=== PATIENT | male | born 1945 | race African-American/Black ===

== ENCOUNTER 2018-04-10 11:22 | Emergency (ER) | payer OTHER ==
[2018-04-10 11:38] VITALS: TEMP 97.9; BMI 24.2
[2018-04-10] MEDS ORDERED: SODIUM CHLORIDE 1,000 ML IV STA (12:04)
--- NOTE | 2018-04-10 12:05 | PDOC ---
History of Present Illness - General History Source: Patient Exam Limitations: No Limitations - History of Present Illness Initial Comments: 04/10/18 15:04 The patient is a 72 year old male, with a significant PMH of diabetes, HTN and HDL, who presents to the emergency department for evaluation of a high blood glucose level this morning. The patient states he had a bagel today at 8:00 am and noticed his body start to progressively shake while driving this morning accompanied with mild dizziness. The patient reports his took him to [facility] where blood test results showed elevated blood sugar level in the 400s. The patient denies chest pain, shortness of breath, headache. Denies fever, chills, nausea, vomit, diarrhea and constipation. Denies dysuria, frequency, urgency and hematuria. Allergies: NKDA Past surgical history: None reported Social history: None reported PCP: Mati Shields <Yi Montelongo - Last Filed: 04/10/18 15:04> - General History Source: Patient Exam Limitations: No Limitations <Aparna Saucedo - Last Filed: 04/10/18 17:32> - General Chief Complaint: Blood Sugar Problem Stated Complaint: SENT BY PCP Time Seen by Provider: 04/10/18 12:03 Past History <Yi Montelongo - Last Filed: 04/10/18 15:04> - Past Medical History COPD: No Diabetes: Yes - Suicide/Smoking/Psychosocial Hx Smoking History: Never smoked <Aparna Saucedo - Last Filed: 04/10/18 17:32> - Past Medical History Allergies/Adverse Reactions: Allergies Allergy/AdvReac Type Severity Reaction Status Date / Time No Known Allergies Allergy Verified 04/10/18 11:36 Home Medications: Ambulatory Orders Atorvastatin Ca [Lipitor] 10 mg PO HS 04/10/18 Azelastine HCl 137 mcg NS DAILY 04/10/18 Finasteride 5 mg PO DAILY 04/10/18 Glimepiride 2 mg PO DAILY 04/10/18 Lisinopril 5 mg PO DAILY 04/10/18 Montelukast Na [Singulair -] 10 mg PO HS 04/10/18 Sitagliptin Phos/Metformin HCl [Janumet 50-1,000 mg Tablet] 1 each PO DAILY 09/22 Tamsulosin HCl [Flomax] 0.4 mg PO DAILY 04/10/18 Review of Systems - Review of Systems Able to Perform ROS?: Yes Comments:: 04/10/18 15:04 Constitutional: no fevers or chills. HEENT: no headache. No congestion. No visual/hearing disturbances. +dizziness CVS: no cp or syncope. Resp: no sob. No cough. Abdomen: no abdominal pain, nausea or vomiting. Genitourinary: no urinary sx, hematuria. MUSCULOSKELETAL: No joint pain and swelling. No neck or back pain. SKIN: no redness or skin changes, no discharge, no rash. No wounds. Hematologic: no easy bruising/bleeding. NEUROLOGIC: +Dizziness. +shakes. No headache. LOC or altered mental status. No weakness, numbness or tingling. Endocrine: hyperglycemia All other systems reviewed and negative, or as documented in HP <Yi Montelongo - Last Filed: 04/10/18 15:04> *Physical Exam - Vital Signs Last Vital Signs Temp Pulse Resp BP Pulse Ox 97.9 F 93 H 18 120/79 100 04/10/18 11:32 04/10/18 11:32 04/10/18 11:32 04/10/18 11:32 04/10/18 11:32 - Physical Exam Comments: 04/10/18 15:04 General:Well appearing, awake and alert, NAD. HEENT: NCAT, PERRL, EOMI, clear conjunctiva, anicteric, moist mucous membranes, clear oropharynx, no oral lesions. Neck: neck supple, FROM Resp: CTAB, normal and even respirations, no respiratory distress CVS: RRR, no murmurs, 2+ peripheral pulses throughout, no peripheral edema Abdomen: soft, NTND, no peritoneal signs. Back:nontender, normal inspection and ROM MSK: no edema, LOZOYA x4, ROM intact. No clubbing or cyanosis. normal bulk and tone. Extrem: no calf tenderness Neuro: alert, oriented appropriately; no focal neurologic deficits Skin: warm and well perfused, cap refill <2 sec, normal color <Yi Montelongo - Last Filed: 04/10/18 15:04> - Vital Signs Last Vital Signs Temp Pulse Resp BP Pulse Ox 97.9 F 93 H 18 120/79 100 04/10/18 11:32 04/10/18 11:32 04/10/18 11:32 04/10/18 11:32 04/10/18 11:32 <Aparna Saucedo - Last Filed: 04/10/18 17:32> Heart Score/ECG Review - ECG Impressions Normal ECG: Yes Comment:: 04/10/18 17:27 sinus arrhythmia, sinus rhythm at 82 bpm, narrow QRS and normal intervals, nonspecific TWF and abnormalities in inferior leads only <Aparna Saucedo - Last Filed: 04/10/18 17:32> ED Treatment Course - LABORATORY CBC & Chemistry Diagram: 04/10/18 12:15 04/10/18 12:15 - ADDITIONAL ORDERS Additional order review: Laboratory Results 04/10/18 04/10/18 13:10 12:15 Sodium 137 Potassium 4.4 Chloride 99 Carbon Dioxide 28 Anion Gap 9 BUN 10 Creatinine 1.5 H Creat Clearance w eGFR 46.27 Random Glucose 394 H* Calcium 8.4 L Total Bilirubin 0.4 AST 13 L ALT 18 Alkaline Phosphatase 57 Total Protein 6.5 Albumin 3.4 Urine Color Straw Urine Appearance Clear Urine pH 5.0 Ur Specific Chadron 1.031 Urine Protein Negative Urine Glucose (UA) 3+ H Urine Ketones Negative Urine Blood Negative Urine Nitrite Negative Urine Bilirubin Negative Urine Urobilinogen Negative Ur Leukocyte Esterase Negative 04/10/18 12:15 RBC 4.22 MCV 91.4 MCHC 35.1 RDW 13.1 MPV 8.6 Neutrophils % 72.7 Lymphocytes % 19.1 Monocytes % 7.1 Eosinophils % 0.2 Basophils % 0.9 - Medications Given in the ED: ED Medications Discontinued Medications Generic Name Dose Route Start Last Admin Trade Name Freq PRN Reason Stop Dose Admin Sodium Chloride 1,000 mls @ 1,000 mls/hr 04/10/18 12:04 04/10/18 12:28 Normal Saline - IV 04/10/18 13:03 1,000 mls/hr .Q1H STA Administration Insulin Human Regular 10 units 04/10/18 13:44 04/10/18 14:42 Novolin R Vial *For Ivpush Or Iv Drip Only* SQ 04/10/18 13:45 10 unit ONCE ONE Administration Sodium Chloride 1,000 ml 04/10/18 13:18 04/10/18 14:41 Normal Saline - IV 04/10/18 13:19 1,000 ml ONCE ONE Administration <Yi Montelongo - Last Filed: 04/10/18 15:04> - LABORATORY CBC & Chemistry Diagram: 04/10/18 12:15 04/10/18 12:15 <Aparna Saucedo - Last Filed: 04/10/18 17:32> Medical Decision Making - Medical Decision Making 04/10/18 15:09 72 YOM with DM2, HTN, HLD presenting with hyperglycemia. no other sx and well appearing. vitals wnl, no fever, normotensive. labs and lytes wnl. however, glucose elevated 390s, Cr at baseline 1.5 (compared to prior results from Outpatient at ~1.2) given IVF and insulin SQ, downtrended on repeat POCT 95 on recheck glucose in the urine as expected, but does not appear ill or severely dehydrated. tolerating PO. normal mental status and well appearing, no neuro deficits. given glucerna. EKG sinus rhythm, PACs no ischemic findings doubt DKA, as clear precipitant of high carb intake/bagels avoid further high carb intake as that metabolizes to sugar and precipitates hyperglycemia f/u PCP as outpatient, return precautions discussed I discussed the physical exam findings, ancillary test results and final diagnoses with the patient. I answered all of the patient's questions. The patient was satisfied with the care received and felt comfortable with the discharge plan and treatment plan. The patient will return to the Emergency Department with any new, persistent or worsening symptoms. 04/10/18 17:31 <Aparna Saucedo - Last Filed: 04/10/18 17:32> *DC/Admit/Observation/Transfer - Attestations Scribe Attestion: 04/10/18 15:05 Documentation prepared by Yi Montelongo, acting as center medical director for Aparna Saucedo MD. <Yi Montelongo - Last Filed: 04/10/18 15:04> - Discharge Dispostion Decision to Admit order: No - Attestations Physician Attestion: 04/10/18 13:45 I, Aparna Saucedo MD, attest that this document has been prepared under my direction and personally reviewed by me in its entirety. I further attest, that it accurately reflects all work, treatment, procedures and medical decision -making performed by me. <Aparna Saucedo - Last Filed: 04/10/18 17:32> Diagnosis at time of Disposition: Hyperglycemia - Discharge Dispostion Disposition: HOME Condition at time of disposition: Improved - Referrals Referrals: Mati Cantu MD [Primary Care Provider] - - Patient Instructions Printed Discharge Instructions: DI for Hyperglycemia -- Adult Additional Instructions: blood Work here was within normal limits. Your sugar has down trended with appropriate therapy, follow-up with her primary doctor for the management of your diabetes. Avoid high carbohydrate and sugary foods as that may precipitate your blood sugar and derangements. All hydrated. Be sure to check her blood sugar with her meals and avoid potential precipitants. - Post Discharge Activity
[2018-04-10 12:31] LABS: BASO % 0.9 % (0-2.0); EOS % 0.2 % (0-4.5); HEMATOCRIT 38.6 % (35.4-49); HEMOGLOBIN 13.5 GM/dL (11.7-16.9); LYMPH % 19.1 % (8-40); MCHC 35.1 g/dl (32.0-35.9); MEAN CELL VOLUME 91.4 fl (80-96); MEAN PLT VOLUME 8.6 fl (7.5-11.1); MONO % 7.1 % (3.8-10.2); NEUT % 72.7 % (42.8-82.8); PLATELET COUNT 256 K/MM3 (134-434); RBC 4.22 M/mm3 (4.00-5.60); RDW 13.1 % (11.9-15.9)
[2018-04-10 13:00] LABS: ALBUMIN 3.4 g/dl (3.4-5.0); ALK PHOS 57 U/L (45-117); ANION GAP 9 MMOL/L (8-16); BILIRUBIN,TOTAL 0.4 mg/dL (0.2-1); BLOOD UREA NITROGEN 10 mg/dL (7-18); CALCIUM 8.4 mg/dL (8.5-10.1); CHLORIDE 99 mmol/L (98-107); CO2 28 mmol/L (21-32); CREATININE 1.5 mg/dL (0.55-1.3); POTASSIUM 4.4 mmol/L (3.5-5.1); SGOT/AST 13 U/L (15-37); SGPT/ALT 18 U/L (13-61); SODIUM 137 mmol/L (136-145); TOT PROT 6.5 g/dl (6.4-8.2)
[2018-04-10] MEDS ORDERED: SODIUM CHLORIDE 0.9% 500 ML INFUS.BAG IV ONE (13:18)
[2018-04-10 13:25] LABS: URINE APPEARANCE CLEAR; URINE BILIRUBIN NEGATIVE (<2.0 mg/dL); URINE COLOR STRAW; URINE GLUCOSE (UA) 3+ (NEGATIVE); URINE KETONE NEGATIVE (NEGATIVE); URINE LEUK ESTERASE NEGATIVE (NEGATIVE); URINE NITRITE NEGATIVE (NEGATIVE); URINE PROTEIN NEGATIVE (NEGATIVE); URINE UROBILINOGEN NEGATIVE mg/dL (0.2-1.0)
[2018-04-10 13:36] LABS: GLUCOSE,RANDOM 394 mg/dL (74-106)
[2018-04-10] MEDS ORDERED: INSULIN REGULAR HUMAN 100 UNITS/ML *VIAL SQ ONE (13:44)
[2018-04-10] MEDS ORDERED: INSULIN (NOVOLOG) ASPART 100 UNITS/ML 10ML VIAL ONE (14:39)
[2018-04-10 17:56] VITALS: BP 130/68; PULSE 77
--- NOTE | 2018-04-11 10:35 | EKG ---
Test Reason : Blood Pressure : / mmHG Vent. Rate : 082 BPM Atrial Rate : 082 BPM P-R Int : 164 ms QRS Dur : 070 ms QT Int : 364 ms P-R-T Axes : 065 011 011 degrees QTc Int : 425 ms SINUS RHYTHM WITH OCCASIONAL PREMATURE VENTRICULAR COMPLEXES SEPTAL INFARCT , AGE UNDETERMINED ABNORMAL ECG NO PREVIOUS ECGS AVAILABLE Confirmed by GEORGE KRAUSE MD ([id number]) on 04/11/2018 10:35:36 AM Referred By: Confirmed By:GEORGE KRAUSE MD
== END 2018-04-10 17:53 | disposition home or self-care (01) ==
LOC: JER 11:22
PROC: 3E0337Z Introduction of Electrolytic and Water Balance Substance into Peripheral Vein, Percutaneous Approach (ICD-10-PCS; principal; 2018-04-10)
PROC: 3E013VG Introduction of Insulin into Subcutaneous Tissue, Percutaneous Approach (ICD-10-PCS; 2018-04-10)
DX: E11.65 Type 2 diabetes mellitus with hyperglycemia (principal); Z79.84 Long term (current) use of oral hypoglycemic drugs; I10 Essential (primary) hypertension; E78.5 Hyperlipidemia, unspecified; E78.00 Pure hypercholesterolemia, unspecified
CPT/HCPCS: 36415; 80053; 81003; 82962; 85025; 87086; 93005; 93010; 96360; 96372; 99283-25; J7030

== ENCOUNTER 2020-03-12 04:22 | Day surgery (SDC) | payer OTHER ==
[2020-03-11 13:49] VITALS: BMI 30.9
--- OUTSIDE RECORDS SUMMARY | 2020-03-12 04:27 | XMS ---
:1945 Author Organization [facility] Care Team Providers Name Role Tester Equipment/PCP, Patient- no Unavailable Unavailable Celso, CHILD PROTECTION SPECIALIST Unavailable Unavailable Celso, CHILD PROTECTION SPECIALIST Unavailable Unavailable Celso, CHILD PROTECTION SPECIALIST Unavailable Unavailable Celso, CHILD PROTECTION SPECIALIST Unavailable Unavailable Celso, CHILD PROTECTION SPECIALIST Unavailable Unavailable Celso, CHILD PROTECTION SPECIALIST Unavailable Unavailable Celso, CHILD PROTECTION SPECIALIST Unavailable Unavailable Celso, CHILD PROTECTION SPECIALIST Unavailable Unavailable Celso, CHILD PROTECTION SPECIALIST Unavailable Unavailable Celso, CHILD PROTECTION SPECIALIST Unavailable Unavailable Celso, CHILD PROTECTION SPECIALIST Unavailable Unavailable Celso, CHILD PROTECTION SPECIALIST Unavailable Unavailable Celso, CHILD PROTECTION SPECIALIST Unavailable Unavailable Celso, CHILD PROTECTION SPECIALIST Unavailable Unavailable Celso, CHILD PROTECTION SPECIALIST Unavailable Unavailable Celso, CHILD PROTECTION SPECIALIST Unavailable Unavailable [facility] Unavailable Unavailable ABUBAKER Unavailable Unavailable ABUBAKER Unavailable Unavailable ABUBAKER Unavailable Unavailable ABUBAKER Unavailable Unavailable ABUBAKER Unavailable Unavailable ABUBAKER Unavailable Unavailable ABUBAKER Unavailable Unavailable ABUBAKER Unavailable Unavailable MD SASKIA Unavailable Unavailable MD SASKIA Unavailable Unavailable MD SASKIA Unavailable Unavailable MD SASKIA Unavailable Unavailable MD SASKIA Unavailable Unavailable MD SASKIA Unavailable Unavailable Rey BOLANOS MD Unavailable Unavailable Weerackody Unavailable Unavailable DOCTOR Unavailable Unavailable Re-disclosure Warning The records that you are about to access may contain information from federally- assisted alcohol or drug abuse programs. If such information is present, then the following federally mandated warning applies: This information has been disclosed to you from records protected by federal confidentiality rules (42 CFR part 2). The federal rules prohibit you from making any further disclosure of this information unless further disclosure is expressly permitted by the written consent of the person to whom it pertains or as otherwise permitted by 42 CFR part 2. A general authorization for the release of medical or other information is NOT sufficient for this purpose. The Federal rules restrict any use of the information to criminally investigate or prosecute any alcohol or drug abuse patient.The records that you are about to access may contain highly sensitive health information, the redisclosure of which is protected by Article 27-F of the [facility] Public Health law. If you continue you may haveaccess to information: Regarding HIV / AIDS; Provided by facilities licensed or operated by the [facility] Office of Mental Health; or Provided by the [facility] Office for People With Developmental Disabilities. If such information is present, then the following [facility] mandated warning applies: This information has been disclosed to you from confidential records which are protected by state law. State law prohibits you from making any further disclosure of this information without the specific written consent of the person to whom it pertains, or as otherwise permitted by law. Any unauthorized further disclosure in violation of state law may result in a fine or penitentiary sentence or both. A general authorization for the release of medical or other information is NOT sufficient authorization for further disclosure. Allergies and Adverse Reactions Type Description Substance Reaction Status Data Source(s ) No information No information No information No information Centricity available. available. available. available. No ([facility] available. Healthcare) No information available. Drug Class NO KNOWN ALLERGIES NO KNOWN ALLERGIES [facility] Drug allergy No Known Allergies No Known Allergies [facility] Encounters Encounter Providers Location Date Indications Data Source(s ) [facility] 08:10:22 PM ([facility]) Outpatient 11/17/2019 [facility]EXTGEN ([place] 09:36:00 AM Healthcare) EDT Outpatient 11/16/2019 [facility]EXTGEN ([place] 11:34:00 AM Healthcare) EDT Outpatient Attender: YOANNA RAHMAN2 11/01/2019 [facility] 04:17:01 PM ([facility]) [facility]: [facility] 04:08:01 PM ([facility] EDT Healthcare) [facility]: [facility] [place] [address] 10/25/2019 [facility] 01:45:01 PM ([facility] EDT Healthcare) Outpatient [facility]: [facility] [address] 10/24/2019 [facility] 04:23:00 PM ([facility] EDT Healthcare) Outpatient [facility]: [facility] [address] 10/24/2019 [facility] 04:22:01 PM ([facility] EDT Healthcare) Outpatient [facility] [place] [address] 10/24/2019 [facility] 04:20:01 PM ([facility] EDT Healthcare) Collision Technician: Carole 10/24/2019 [facility] jodie Fishgo TONY 10:35:47 AM ([facility] EDT - Healthcare) 10/24/2019 10:35:47 AM EDT [facility] 10/24/2019 [facility] 10:01:01 AM ([facility] EDT Healthcare) Outpatient Attender: [facility] 10/20/2019 [facility] 09:01:39 PM ([facility] EDT Healthcare) Outpatient Attender: [facility] 10/20/2019 [facility] 04:06:00 PM ([facility] EDT Healthcare) Outpatient Attender: [facility] 10/20/2019 [facility] 04:03:00 PM ([facility] EDT Healthcare) Outpatient 07/30/2019 [facility]EXTGEN ([place] 07:25:00 AM Healthcare) EST Outpatient 07/29/2019 NEXTGEN ([place] 08:37:00 AM Healthcare) EST Inpatient Attender: ASHLEY 07/23/[address] Leticia KRUGER MDAdmitter: 09:24:00 AM [facility] ASHLEY KRUGER EST - MDReferrer: NO 07/24/2019 DOCTORConsultant: 04:34:00 PM Patient- EST Specialist/PCP SYNCOPE Patient discharged. Emergency Attender: ITZ 07/23/2019 06:05:00 DIABETIC S t Leticia Shafer ABUBAKERAttender: MATTHEW AM EST Ho sury BOLANOS MDReferrer: SANDIP [place] DOCTORConsultant: Patient- Specialist/PCP DIABETIC P Attender: ITZ TAYLOR 07/23/2019 05:57:00 AM DIABETIC [facility] DIABETIC P Attender: ITZ TAYLOR 07/23/2019 05:57:00 AM DIABETIC [facility] DIABETIC P Attender: ITZ TAYLOR 07/23/2019 05:43:00 AM DIABETIC [facility] DIABETIC P Attender: ITZ TAYLOR 07/23/2019 05:42:00 AM DIABETIC [facility] DIABETIC P Attender: ITZ TAYLOR 07/23/2019 05:42:00 AM DIABETIC [facility] DIABETIC P Attender: ITZ TAYLOR 07/23/2019 05:42:00 AM DIABETIC [facility] DIABETIC P Attender: ITZ TAYLOR 07/23/2019 05:42:00 AM DIABETIC [facility] DIABETIC P Attender: ITZ TAYLOR 07/23/2019 05:42:00 AM DIABETIC [facility] DIABETIC P Attender: ITZ TAYLOR 07/23/2019 05:42:00 AM DIABETIC [facility] DIABETIC P Attender: ITZ TAYLOR 07/23/2019 05:42:00 AM DIABETIC [facility] DIABETIC P Attender: ITZ TAYLOR 07/23/2019 05:42:00 AM DIABETIC [facility] DIABETIC P Attender: ITZ TAYLOR 07/23/2019 05:42:00 AM DIABETIC [facility] DIABETIC P Attender: ITZ TAYLOR 07/23/2019 05:42:00 AM DIABETIC [facility] DIABETIC P Attender: ITZ TAYLOR 07/23/2019 05:42:00 AM DIABETIC [facility] DIABETIC P Attender: ITZ TAYLOR 07/23/2019 05:41:00 AM DIABETIC [facility] DIABETIC P Attender: ITZ TAYLOR 07/23/2019 05:35:00 AM DIABETIC [facility] DIABETIC P 07/23/2019 05:31:00 AM EST DIABETIC [facility] DIABETIC P 07/23/2019 05:31:00 AM EST DIABETIC [facility] DIABETIC P 07/23/2019 05:30:00 AM EST DIABETIC [facility] DIABETIC P 07/23/2019 05:29:00 AM EST DIABETIC [facility] DIABETIC P 07/23/2019 05:29:00 AM EST DIABETIC [facility] DIABETIC P 07/23/2019 05:15:00 AM EST DIABETIC [facility] DIABETIC P Attender: ITZ TAYLOR 07/23/2019 05:14:00 AM DIABETIC [facility] DIABETIC Outpatient Attender: Jarad 07/23/2019 12:00:00 AM [facility] - 07/23/2019 Heart Ce nter 11:59:00 PM EST Outpatient 04/20/2019 07:31:00 AM NE XTGEN ([employer] [facility]) Outpatient 04/19/2019 10:24:00 PM NE XTGEN ([employer] [facility]) 04/17/2018 01:37:25 PM [facility] Medications Medication Brand Start Product Dose Route Administrative Pharmacy [facility] Indications Reaction Description Data Name Date Form Instructions Instructions Source(s) Azithromyci Azithr 04/02/ TABLET 250 complet [facility] [facility] n 250 MG omycin 2014 ed [place] Oral Tablet (Zithr 12:00: Hosp ital - [Zithromax] omax) 00 AM [facility] gh Azithromyci 250 Mg EDT n Tablet (Zithromax) Tablet 250 Mg , 250 Tablet Mg Tablet, 250 Oral Mg Oral Donepezil DONEPE TABLET 1 complet EVERY DA Y [facility] hydrochlori ZIL ed [place] de 5 MG [facility] - Oral Tablet (ARICE [place] [Aricept] PT) 5 DONEPEZIL MG HCL TABLET (ARICEPT) 5 MG TABLET Finasteride FINAST TABLET [address] [facility] 5 MG Oral ERIDE ed [place] Tablet ([facility] - [Proscar] AR) 5 [place] FINASTERIDE MG (PROSCAR) 5 TABLET MG TABLET Sertraline SERTRA TABLET 50 complet EVERY D [facility] 25 MG Oral LINE ed [place] Tablet HCL Hospital - [Zoloft] (ZOLOF [place] SERTRALINE T) 25 HCL MG (ZOLOFT) 25 TABLET MG TABLET sitagliptin Sitagl TABLET [address] [facility] 25 MG Oral iptin ed [place] Tablet Phosph Hospital - [Januvia] ate [place] Sitagliptin (Januv Phosphate ia) 25 (Januvia) Mg 25 Mg Tablet Tablet Tablet Tablet, 25 , 25 Mg Oral Mg Oral Tamsulosin Tamsul CAPSULE, 1 complet AT BE DTIME [facility] hydrochlori osin EXTENDED ed DAILY Cor nwall de 0.4 MG HCl RELEASE Hospita l - Oral (Floma [place] Capsule x) 0.4 [Flomax] MG Tamsulosin CAP.ER HCl .24H (Flomax) 0.4 MG CAP.ER.24H Metformin Sitagl TABLET 1 complet EVERY DA Y [facility] hydrochlori iptin ed [place] de 1000 MG Phos/M Hospita l - / etform [place] sitagliptin in HCl 50 MG Oral (Janum Tablet et [Janumet] 50-1,0 Sitagliptin 00 MG Phos/Metfor Tablet min HCl ) 1 (Janumet EACH 50-1,000 MG TABLET Tablet) 1 EACH TABLET Divalproex DIVALP 125 complet TWICE A D [facility] Sodium 125 ROEX ed [place] MG Delayed SODIUM Hospita l - Release (DEPAK [place] Oral OTE Capsule SPRINK [Depakote] LE) DIVALPROEX 125 MG SODIUM CAP.SP (DEPAKOTE RINK SPRINKLE) 125 MG CAP.SPRINK glimepiride Glimep TABLET [address] [facility] 1 MG Oral iride ed [place] Tablet ([facility] - [Amaryl] l) 1 [place] Glimepiride Mg (Amaryl) 1 Tablet Mg Tablet Tablet Tablet, 1 , 1 Mg Mg Oral Oral Insulin Insuli 5 complet AT BEDTIME [facility] Glargine n ed DAILY [place] 100 UNT/ML Glargi Hospita l - Injectable ne,[facility] h Solution .rec.a [Lantus] nlog Insulin (Lantu Glargine,Hu s) 100 m.rec.anlog UNIT/1 (Lantus) ML 100 UNIT/1 VIAL ML VIAL No complet No Centricity information ed information ( [facility] available. available. [facility] ) atorvastati Atorva TABLET [address] [facility] n 10 MG statin ed [place] Oral Tablet [facility] - [Lipitor] m [place] Atorvastati (Lipit n Calcium or) 10 (Lipitor) Mg 10 Mg Tablet Tablet Tablet Tablet, 10 , 10 Mg Oral Mg Oral Glyburide 5 Glybur TABLET [address] [facility] MG Oral milton ed [place] Tablet ([facility] [[facility]] ) 5 [place] Glyburide Mg ([facility]) 5 Tablet Mg Tablet Tablet Tablet, 5 , 5 Mg Mg Oral Oral Lisinopril LISINO TABLET 2.5 complet EVERY D [facility] 2.5 MG Oral PRIL ed [place] Tablet ([facility] - [[facility]] MS) [place] LISINOPRIL 2.5 MG ([facility]) TABLET 2.5 MG TABLET Insurance Providers Payer name Policy type Policy ID Covered Covered republican's Policy P aminata / Coverage republican ID relationship to [place] [employer] ormation type [place] AETNA MEDICARE [id number] SP [id number] COMM [id number] Self [id number] AETNA [facility] [id number] SP [id number] [place] MEDICARE AETNA OPEN [id number] SPSE [id number] [id number] SP [id number] [facility] AETNA USHC [id number] SP [id number] [place] MEDICARE UNITED [id number] [facility] [id number] HEALTHCARE [facility] [id number] HEALTHCARE (MEDICARE) Problems, Conditions, and Diagnoses Code Display Name Description Problem Type Effective Data Sour ce(s) Dates Z20.828 Exposure to Exposure to Diagnosis 10/24/2019 Centricity COVID-19 COVID-19 12:00:00 AM ([facility] coronavirus coronavirus [facility]) Z01.84 Immunity status Immunity status Diagnosis 10/24/2019 Cent ricity testing, antibody testing, antibody 12:00:00 AM ([facility] response response [facility]) Z81.8 Family history of FAMILY HISTORY OF Diagnosis 07/23/2019 [facility] other mental and OTHER MENTAL AND 09:24:00 AM C adánl behavioral BEHAVIORAL DISO [facility] - disorders [place] Z83.3 Family history of FAMILY HISTORY OF Diagnosis 07/23/2019 [facility] diabetes mellitus DIABETES MELLITUS 09:24:00 AM [facility] Z82.3 Family history of FAMILY HISTORY OF Diagnosis 07/23/2019 [facility] stroke STROKE 09:24:00 AM [facility] Z87.442 Personal history PERSONAL HISTORY Diagnosis 07/23/2019 [facility] of urinary calculi OF URINARY 09:24:00 AM [place] all CALCULI [facility] Z79.[address] Diagnosis 07/23/2019 [facility] (current) use of (CURRENT) USE OF 09:24:00 AM C ornalbertol oral hypoglycemic ORAL HYPOGLYCEMIC [facility] - drugs DRUGS [place] N40.0 Benign prostatic BENIGN PROSTATIC Diagnosis 07/23/2019 [facility] hyperplasia HYPERPLASIA 09:24:00 AM [place] without lower WITHOUT LOWER [facility] - urinary tract URINRY [place] symptoms G25.0 Essential tremor ESSENTIAL TREMOR Diagnosis 07/23/2019 [facility] 09:24:00 AM [facility] F02.80 Dementia in other DEMENTIA IN OTH Diagnosis 07/23/2019 [facility] diseases DISEASES CLASSD 09:24:00 AM [place] classified ELSWHR W/O [facility] - elsewhere without BEHAVRL [facility] h behavioral disturbance D64.9 Anemia, ANEMIA, Diagnosis 07/23/2019 [facility] unspecified UNSPECIFIED 09:24:00 AM [facility] E87.2 Acidosis ACIDOSIS Diagnosis 07/23/2019 [facility] 09:24:00 AM [facility] E11.649 Type 2 diabetes TYPE 2 DIABETES Diagnosis 07/23/2019 [facility] ukes mellitus with MELLITUS WITH 09:24:00 AM [facility] hypoglycemia HYPOGLYCEMIA [facility] - without coma WITHOUT [place] N17.9 Acute kidney ACUTE KIDNEY Diagnosis 07/23/2019 [facility] failure, FAILURE, 09:24:00 AM [place] unspecified UNSPECIFIED [facility] R55 Syncope and SYNCOPE AND Diagnosis 07/23/2019 [facility] collapse COLLAPSE 09:24:00 AM [facility] Results ID Date Data Source [id number] 03/07/2020 11:10:00 AM EDT [facility] Name Value Range Interpretation Description Data Sup porting Code Source(s) Document(s ) SARS [facility] coronavirus 2 RNA This lab was ordered by [facility] and reported by [facility]. ID Date Data Source [id number] 07/31/2019 04:02:00 [facility] SAHIL CANTU STATUS: DIS INoACCOUNT #: [id number] ADM UNIT #: [id number] ROOM/BED: [place] [address]SEX: M ATTEND: GERHARD KRUGER MDOB: [birth year] AGE: 73 AUTHOR: ASHLEY KRUGER MD PCP: DOCTOR,NOT IN DICTIONARY Service Date/Time: 07/24/19 1434 Discha [facility] Summary.Date of Admission: 07/23/19Date of Discharge: 07/24 Disposition: [home]Co urse of Hospitalization: [73-year-old male with a past medical history as noted bel ow including diabetes, dementia, tremors who lives with his presented to [facility] room after he passed out at his home this morning. As per his the patie nt got up to go to the bathroom and he she heard a thud and he was found on the phyllis or. The patient was disoriented afterwards she gave him orange juice but he was allen ble to drink it and he remained is disoriented but she gave him somesugar s olution and he slowly came back to his normal self. Patient has recently started taki ng insulin at bedtime. His fingerstick glucose was high when measuredby EMS. T he denies any recent sickness illness or other new medications. Patient is curre ntly comfortable, denies any headache, shortness of breath, chest pain.] pt was seen by cardio/neuro,w/u was negative,pt remained asymptomatic here,had a detaile d discussion with could micturition syncope vs hypoglycemia,diabetic educati on was provided.should follow up with cardio/neuro as outpt.was also found to ave creatinine elevation which improved with hydration Physical Exam Physical ExamCon stitutional alert, awake, no acute distressEyes Eye Exam bilateral eye anicteric, bilateral eye lids normalEENT Throat/Mouth mucosa pink/moist, orophary nx WNLCardiovascular regular rhythm, rate within normal limits, normal heart sound sRespiratory breath sounds equal bilat, breath sounds clear bilatGI Abdomen so ft, non-tender, bowel sounds WNLMusculoskeletal Extremities no elmer a, non-tender, Right arm resting tremorSkin/Integumentary color normal, d ry, warmNeuro no gross motor deficit, speech normal Problem, Assessment PlanPROBLEM , ASSESSMENT PLAN: 1. Syncope ICD Code R55 - Syncope and collapse Qualifiers Syncope type: unspecified Qualified Code: R55 - Syncope and collapse Assess Plan: On Sun 3:40p Jul 23, 2019 ASHLEY KRUGER wrote73 yo male admitted with: -unwit nessed syncope and fall: Seizure versus vasovagal syncope versus hypoglycemia. Blood sugars were high when they were checked. Patient is currently asymptoma tic, Neurology has been consulted. Admit to telemetry, Cardiology has been consulted . Check orthostatic blood pressure, check carotid Doppler. CT head was negative. Monitor blood sugars closely. -acute renal failure: 1.66 at the time of admission, prior records show creatinine of 1.0, likely from dehydration will start him on gentl e hydration and repeat BMP in a.m.. Monitor intake and output. Avoid nephrotoxin me dications. Check UA -DM:fingersticks ACHS, humalog SS.check hba1c,avoid long acting agents,carb controlled diet. Patient is on metformin at home, and also has acute re nal failure, might explain the lactic acidosis. Lactic acidosis has normalize d on subsequent testing. Will avoid metformin for now -dementia: Stable, is being seen by Neurology, supportive care, frequent reorientation. Continue Aricep t. -essential tremors: Continue Depakote bid. -BPH: Continue Proscar, Flomax. -A nemia: Normocytic, normochromic. There is no evidence of bleeding at this time. W ill continue to monitor. 2. Acute renal failure ICD Code N17.9 - Acute kidney failure, unspecified 3. Diabetes ICD Code E11.9 - Type 2 diabetes mellitus without complications 4. Dementia ICD Code F03.90 - Unspecified dementia without behaviora l disturbance 5. BPH (benign prostatic hyperplasia) ICD Code N40.0 - Benign p rostatic hyperplasia without lower urinary tract symptoms 6. Anemia ICD Code D64 .9 - Anemia, unspecified 7. Lactic acidosis ICD Code E87.2 - Acidosis PROPHYLAXIS M EASURESscdReferralsOrdered ReferralsCardiologyFor Groups:[facility] - [id number] [place], [place] [id number] Ne urologyFor Groups:Tatyana Waterman Md[address] [place] [address] Core Measures Stroke/TIANew Onset STK/TIA? No Billing Inpatient CodesDischarge [phone] at 1233 ASHLEY KRUGER MD Electronically Signed 07/31/19 1233 Providers:ASHLEY KRUGER MD Report E ntered Date/Time: 07/24/19 1434Current Report Status: Signed Report #: [id number] PCP ID: NELLY ATTENDING ID: [id number] AUTHOR ID: DAMARIS Name Value Range Interpretation Code Description Data Iman rce(s) Supporting Document(s ) ID Date Data Source [id number] 07/24/2019 10:57:00 AM EST [facility] DEPART MENT OF DIAGNOSTIC IMAGING Patient Name: SAHIL CANTU : 1945 Patient Addr.: Sol MARIN MR#: [id number] [place] [address] Patient Phone #: Dictate Date: 07/24/19 1055 Ordering M.Benja: ASHLEY KRUGER MD, MD ID: SHSHA Trans Date: Copies to: Yash KRUGER MD; CC ID: ; Patient Loc: RadhaN L.511-01 Report #: [id number] Order Number(s): [id number] Site: [facility] Exam Date/Time: 1- 0 07/24/19 1057 Exam: DOPPLER ECHOCARDIOGRAM DEPARTMENT OF CARDIAC IMAGING PROCEDURE: DOPPLER ECHOCARDIOGRAM COMPARISON: None. INDICATIONS: syncope TECHNIQUE: A 2-D ultrasound, color spectral Doppler and M-mode examin ation of the heart and greatvessels was performed. M-MODE MEASUREMENTS EF: 60 % LVIDd (3.7-5.7): 4.4 cm LVIDs (2.5-3.8): 2.5 cm IVSDd (0.6-1 .1): 1.3 cm LVPWd (06.-1.1): 1.1 cm LA (2-4): 3.5 cm AoR (2-3.7): 3 .4 cm LA/AoR Ratio: 1.0 AoV Cusp Sep: 1.9 cm MV EPSS (0-0.7): 0.2 cm DOPPLER LVOT Pk yoni: 1.00 m/s LVOT Pk grad: 3.98 mm[Hg] LVOT VTI: 0.21 m AoV Pk Yoni: 0.90 m/s AoV Pk Grad: 3.24 mm[Hg] AoV Mn Grad: 1.77 mm[Hg] TOO VTI: 0.17 m MVA (PHT): 5.23 cm2 MV Decel T: 145.04 ms MV E: 0. 75 m/s MV A: 0.47 m/s MV E to A Ratio: 1.59 MV e': 0.13 m/s R VSP: 32 mm[Hg] QUALITY: Technical quality was adequate. AO RTIC ROOT: Normal diameter and appearance. ATRIAL SEPTUM: Intact atrial septum. LEFT ATRIUM: Normal chamber size. RIGHT ATRIUM: Normal chamber size. RIGHT VENTRICLE: Normal chamber size. Normal right ventricular contractility. LEFT VENTRICLE: Normal chamber size. Asymmetric interventricular septal hyper trophy. Normal left ventricular contractility. Normal left ventricular e jection fraction, (>55%). AORTIC VALVE: Normal aortic valve. No visible scleros is. Normal leaflet mobility. No evidence of aortic valve stenosis. Mild aortic regu rgitation. MITRAL VALVE: Normal mobility and thickness. No evidence of mitral valve stenosis. There is no mitral annular calcification. No mitral regur gitation. DIASTOLIC: No diastolic dysfunction. TRICUSPID VALVE: Normal mobility and thickness. Mild tricuspid regurgitation. No evidence of pulmonary hypertension. PULMONIC VALVE: Normal thickness and mobility. Normal with no regurgitation. PERICARDIUM: No evidence of pericardia l effusion. IVC: Within normal limits. PLEURA: No evidence of p leural effusion. CONCLUSION: 1. Normal left ventricu lar systolic function (EF >55%) 2. Mild aortic valve regurgitation Data input by: Mary Randolph on 07/24/2019 at 10:57 AM Approved by: Dawood Dimas on 07/24/2019 at 2:17 PM Signed: 07/24/19 1417 DAWOOD DIMAS MD TRN: TBY Name Value Range Interpretation Code Description Data Iman rce(s) Supporting Document(s ) ID Date Data Source [id number] 07/24/2019 09:07:00 AM [facility] PATIENT: ASHIL CANTU STATUS: ADM INoACCOUNT #: [id number] ADM UNIT #: [id number] ROOM/BE D: [place] [address]SEX: M ATTEND: GERHARD KRUGER MDOB: [birth year] AGE: 73 AUTHOR: TATYANA WATERMAN MD PCP: DOCTOR,NOT IN DICTIONARY Service Date/Time: 07/24/19 0905 Subjec tiveAdmission information Feeling wellAmbulating to the wilkins Physical Exam Vital signsVital Signs Date Time Temp Pulse Resp B/P B/P Pulse O2 O2 Flow FiO2 Mean Ox Delivery Rate 07/24 0600 97.8 66 16 129/90 07/24 0000 98.0 71 16 130/84 07/23 1900 98.6 76 17 117/55 07/23 1500 97.6 71 16 133/79 07/23 1104 97.0 66 16 120/57 07/23 1019 97.0 07/23 0906 66 12 0/57 100 Neurological Examination HEENT: NC/ATMS: Alert, knows he is in ho spital, overall confused with poor short-term memoryCN: II-XII are intactMotor: 5/5, n o drift, no focal weaknessCerebellar: Essential tremor in both upper extremiti es, no dysmetria, not walkedSensory: IntactDTRs: Hypoactive, ankle jerks abs ent, plantar responses are flexor Diagnostic Findings Diagnostic FindingsLaboratoryLa boratory Tests 07/24 07/23 0 07/23 0726 0947 0917 Chemistry Sodium (135 - 145 mmol/L) 143 Potassium (3.5 - 5.1 mmol/L) 3.9 Chloride (98 - 107 mmol/L) 110 H Carbon Dioxide (21 - 32 mmol/L) 27 Anion Gap (8 - 20 mmol/L) 6.0 L BUN (7 - 18 mg/dL) 11 Creatinine (0.700 - 1.300 mg/dL) 1.340 H Est Cr Clr Drug Dosing (>=60.00 mL/min) 45.63 Est GFR (MDRD) Af Amer (>= 60.0 mL/min) 63.45 Est GFR (MDRD) Non-Af (>=60.0 mL/min) 52 .44 BUN/Creatinine Ratio (6.0 - 20.0) 8.2 Glucose (74 - 10 6 mg/dL) 123 H Calculated Osmolality (273 - 304 mos/kg) 286 Lactic Acid (0.4 - 1.9 mmol/L) 1.9 Calcium (8.5 - 10.1 mg/dL) 8.3 L Hematology WBC (4.0 0 - 10.00 K/uL) 5.83 RBC (4.63 - 6.08 M/uL) 3.68 L Hgb (13.7 - 17.5 g/dL) 11.5 L Hct (40.1 - 51.0 %) 34.8 L MCV (80.0 - 96.0 fL) 94.6 MCH (27.0 - 33.2 pg) 31.3 MCHC (32.2 - 35.5 g/dL) 33.0 RDW (11.6 - 14.4 %) 12.6 Plt Count (150 - 450 K/uL) 166 MPV (8.5 - 11.8 fL) 10.8 Immature Gra n % (Auto) (0.1 - 0.3 %) 0.2 Immature Gran # (Auto) (0.01 - 0.03 K/u L) 0.01 Neutrophils % (38.9 - 69.8 %) 55.2 Lym phocytes % (21.7 - 51.7 %) 33.4 Monocytes % (4.7 - 12.2 %) 9.4 Eosinophils % (0.8 - 7.0 %) 1.5 Basophils % (0.1 - 1.2 %) 0.3 Neutrophils # (1.46 - 7.12 K/uL) 3.21 Lymphocytes # (0.92 - 4.30 K/uL) 1.95 Monocytes # (0.24 - 0.86 K/uL) 0.55 Eosino phils # (0.04 - 0.54 K/uL) 0.09 Basophils # (0.01 - 0.08 K/uL) 0.02 Nucleated RBCs (0.0 - 0.2 /100WBC) 0.0 Uri austin Urine Color (YELLOW) YELLOW U rine Clarity (CLEAR) CLEAR Urine pH (4.6 - 8.0) 5.5 Ur Specific [place] (1.0 01 - 1.035) 1.025 Urine Protein (NEGATIVE) 30 Urine Ketones (NEGATIVE mg/dL) Trace Urine Blood (NEGATIVE) NEGATIVE Urine Nitrite (NEGATIVE) NEGATIVE Urine Bilirubin (NEGATIVE) NEGATIVE Urine Urobilinogen (0.2 - 0.9 E.U./dL) 0 .2 Urine Leukocytes (NEGATIVE) NEGATIVE Urine RBC (Auto) (0 - 3 /HPF) 0-3 Urine Bact eria (Auto) (NEGATIVE /HPF) NEGATIVE Urine WBC (0 - 5 /HP F) 0-5 Ur Squamous Epith Cells (0 - 5 /LPF) 0-5 Urine Glucose (NEGATIVE mg/dL) NEGATIVE Core Measures Stroke/TIANew Onset STK/TIA? No Problem, Assessment PlanPROBLEM, ASSESSMENT PLAN 1. Syncope ICD Code: R55 - Syncope and collapse Qualifiers: Syncope type: unspecified Qualified Code: R55 - Syncop e and collapse Reason Cont. Hospitalization:[facility]. * Probable vasovaga l syncope, rule out micturition syncope, I doubt that this was hypoglycemia* SDAT* Essential tremor Recommendations * Carotid duplex okay* Discharge planning Electron ically Signed by TATYANA WATERMAN MD on 07/24/19 at 0906 TATYANA WATERMAN MD Electronically Signed 07/24/19 0906 Providers:TATYANA WATERMAN MD Entered Date/Time: 07/24/19 0905Current Report Status: Signed Report #: [id number] PCP ID: NELLY ATTENDING ID: SHSHA AUTHOR ID: HUGJO Name Value Range Interpretation Code Description Data Iman rce(s) Supporting Document(s ) ID Date Data Source [id number] 07/24/2019 08:14:00 AM EST [facility] Name Value Range Interpretation Description Data Sup porting Code Source(s) Document(s ) GLUCOSE 123 74-[address] [facility] mg/dL [facility] BUN 11 mg/dL 7-18 [facility] CREATININE 1.340 0.700-1. Above high normal [facility] mg[facility] 300 [facility] EST.GLOMERULAR 52.44 >=60.0 [facility] FILTRATION mL/min [facility] EST.GFR 63.45 >=60.0 [facility] mL/min [facility] PHARMACY 45.63 >=60.00 [facility] COCKCROFT-DUNIA mL/min [facility] BUN/CREAT 8.2 6.0-20.0 [facility] RATIO [facility] SODIUM 143 135-145 [facility] mmol/L [facility] POTASSIUM 3.9 3.5-5.1 [facility] mmol/L [facility] CHLORIDE 110 98-107 Above high normal [facility] mmol/L [facility] CO2 27 21-32 [facility] mmol/L [facility] ANION GAP 6.0 8-20 Below low normal [facility] mmol/L [facility] CALCIUM 8.3 8.5-10.[address] [facility] mg/dL [facility] OSMOLALITY 286 273-304 [facility] CALCULATION mos/kg [facility] ID Date Data Source [id number] 07/24/2019 07:48:00 AM EST [facility] Name Value Range Interpretation Code Description Data Iman rce(s) Supporting Document(s ) WBC 5.83 K/uL 4.00-10.00 # [facility] Delta: 3.78 on 07/23/19-7451 RBC 3.68 M/uL 4.63-6.08 Below low normal [facility] HGB 11.5 g/dL 13.7-17.5 Below low normal [facility] HCT 34.8 % 40.1-51.0 Below low normal [facility] MCV 94.6 fL 80.0-96.0 [facility] MCH 31.3 pg 27.0-33.2 [facility] MCHC 33.0 g/dL 32.2-35.5 [facility] RDW 12.6 % 11.6-14.4 [facility] PLT 166 K/uL 150-450 [facility] MPV 10.8 fL 8.5-11.8 [facility] DERICK% 55.2 % 38.9-69.8 [facility] LYM% 33.4 % 21.7-51.7 [facility] MONO% 9.4 % 4.7-12.2 [facility] EOS% 1.5 % 0.8-7.0 [facility] BASO% 0.3 % 0.1-1.2 [facility] IMMATURE GRANULOCYTE% 0.2 % 0.1-0.3 [facility] The immature granulocyte count is an enu meration ofmetamyelocytes, myelocyte, and promyelocytes present in the[facility] blood sa mple. It does not include band neutrophilforms. ABSOLUTE NEUTROPHIL COUNT 3.21 K/uL 1.46-7.12 [facility] LYM# 1.95 K/uL 0.92-4.30 [facility] MONO# 0.55 K/uL 0.24-0.86 [facility] EOSIN# 0.09 K/uL 0.04-0.54 [facility] BASO# 0.02 K/uL 0.01-0.08 [facility] IMMATURE GRANULOCYTES# 0.01 K/uL 0.01-0.03 [facility] NRBC 0.0 /100WBC 0.0-0.2 [facility] ID Date Data Source [id number] 07/23/2019 06:51:00 PM [facility] SAHIL CANTU STATUS: ADM INoACCOUNT #: [id number] SERVICE UNIT #: [id number] LOCAT ION: L.5NSEX: M PCP PHYS: DOCTOR,NOT IN DICTIONARYDOB : 47 AGE: 73 DR ITZ TAYLOR 07/23/19 0532:General M edical HPI Current HistoryMeds taken at homeDiscontinued ScriptsAZITHROMYCIN (ZI THROMAX) 250 MG PO DAILY Reported MedicationsSitagliptin Phos/Metformin HC l (Janumet 50-1,000 MG Tablet) 1 TABLET PO BID SITAGLIPTIN PHOSPHATE (JANUVIA) Tamsulosin HCl (Flomax) GLIMEPIRIDE (AMARYL) FINASTERIDE (PROSCAR) S ERTRALINE HCL (ZOLOFT) LISINOPRIL (ZESTRIL) DONEPEZIL HCL (ARICEPT) DIVALPROEX SODIUM (DEPAKOTE SPRINKLE) Insulin Glargine,Hum.rec.anlog (Lantus) Discontinued Reported MedicationsAtorvastatin Calcium (Lipitor ) 10 MG PO DAILY GLYBURIDE (DIABETA) 5 MG PO BID AllergiesCoded Allergies:No Known Allergies (05/09/13) GeneralChief Complaint FELLGreet [id number] Date seen 07/23/19Tim e seen 522History from patient, Past Medical/Family HistoryPrior Medical Hist ory KIDNEY STONES NIDDMSurg Hist/Past HospitalizationDENIESFamily historyNo Kn own Family History. Social history lives with family, no tobacco History of Present Il lnessInitial Llevxshc7 y/o M w/ hx dementia, htn, dm presents to ED s/p fall, indra coffey was sleeping, woke up when heard thud, found pt passed out in bathroom +loc, ab le to rouse pt, gave him OJ, pt V x1, then gave glucose and said pt seemed to be okay after. Here in ED pt expresses no complaints. He says only remembers going tobathroom and "feeling warm" at that time and then waking up on ground. Denie s cp, sob, back pain, neck pain, dizziness, VELEZ, visual changes, numbness/tingling, n ausea or any other sx. Per , pt has been eating as normal. Portions of this sect ion were scribed by TORI BARRAGAN on 07/23/19 at 0535 NIHSS Assessment tPA Ch ecklist NIHSS (required for CVA/TIA)Date 07/23/19Time 0523NIH baselineNIH Assessm ent NIH Assessment Response Value Level of Consciousness 0 Alert 0 LOC Question ( Month,Age) 0 Answers both correctly 0 LOC Commands(open,close eyes ) 0 Obeys both correctly 0 Best Gaze(pt follow finger) 0 Normal 0 Visual(intro visual stimulus) 0 No visual l oss 0 Facial Palsy(squeeze eye shut) 0 Normal 0 Motor Larm raise 90score drift 0 No drift 0 Motor R arm raise 90score drift 0 No drift 0 Motor Lleg raise 30 score drift 0 No drift 0 Motor Rleg raise 30score drift 0 No drift 0 Limb Ataxia (finger/nose) 0 Absent 0 Sensory (pin prick side/side) 0 Normal 0 Best language (name items) 0 No aphasia 0 D ysarthria 0 Normal articulation 0 Extinction Inattention 0 No neglect 0 Total 0 Portions of this section were scribed by TORI BARRAGAN on 07/23/19 at 0535 Review of SystemsEyes Eyes denies impaired vis ionCardiovascular Cardiovascular denies chest painRespiratory Respiratory de nies shortness of breathGastrointestional Commentreports V x1, denies N in EDMuscu loskeletal Musculoskeletal denies back pain, denies neck painNeuro Neuro de nies dizzy, denies headache Commentreports loc, denies numbness/tinglingAll Other S ystems pertinent revw'd neg Portions of this section were scribed by KARINA BARRAGAN on 07/23/19 at 0535 Physical ExamNursing assessment reviewed YesVital SignsVital Signs Date Time Temp Pulse Resp B/P B/P Pulse O2 O2 Flow FiO2 Mean Ox Delivery Rate 07/23 0431 96. 2 54 16 96/52 100 07/23 0519 96.2 54 16 96/52 100 Physical ExamConstitutional alert, awake, no acute distress, non-toxic appe aring, well nourishedEyes Eye Exam bilateral eye EOMI/PERRL, bilateral eye anicteric, bilateral eye lids normalEENT Head and Face no hematoma, skin intact, no gross deformityCardiovascular regular rhythm, rate within normal limits, jose l heart soundsRespiratory breath sounds equal bilat, breath sounds clear bilat, no res piratory distressGI Abdomen soft, non-tenderMusculoskeletal Chest non-tr aumatic Back normal inspection, no mid. pain to cervical, no mid. pain to thorac ic, no mid. pain to lumbar Extremities normal appearing, ROM normal for age, no edema Neck normal inspection, supple, no midline tendernessSkin/Integumentary col or normal, dry, good turgorNeuro appropriate for age, no gross motor deficit, no benjamin s sensory deficit, speech normalPsych age appropriate, oriented X3, answers questi ons approp. Portions of this section were scribed by TORI BARRAGAN on 07/23/19 at 0535 Last lab resultsPulse ox normalEKG 05:35 Interpreted by me, sinus anya 58 bpm, otherwise normal ECGOther ImagingCXR DEPARTME NT OF DIAGNOSTIC IMAGING Patient Name: SAHIL CANTU : 1945Patient Addr.: [address], MR#: [place] [address] Vi sit#: [id number] Phone #: Dictate Date: 07/23/19601Dov Urbina: KAUSHIK TAYLOR MD ID: ABUSY Trans Date:Copies to: SONAL TAYLOR MD;CC ID: [Patient Loc: Herbieort #: [id number] Number(s): [id number] [facility]: [facility] Exam: CHEST 1 VIEW AP PORTABLE ROUT PROCEDURE: CHEST 1 VIEW, AP PO RTABLE ROUTINE COMPARISON: [facility], XR, CXRPL, 04/02/2014, 6:52PM. INDICATIONS: hypoglycemia VIEWS: 1 FINDINGS: LUNG S: Normal. No significant pulmonary parenchymal abnormalities. VASCULATURE: Normal. Unremarkable pulmonary vasculature. CARDIAC: Normal. No card iac silhouette abnormality or cardiomegaly. MEDIASTINUM: Normal. No visible mass or adenopathy. PLEURA: Normal. No effusion or pleural thickening. OTHER: Negative . CONCLUSION: No acute disease. Dictated by: Chris Negrete on 07/23/2019 a t 6:02 AM Approved by: Chris Negrete on 07/23/2019 at 6:02 AM Signed: 07/23 0602 Portions of this section were scribed by TORI BARRAGAN on 07/23/19 at 0624 Disposition Sign outPt signed out to Dr. BolanosTime 0700Assumed Pt yes, fo llow up labs, f/u radiologic studies, follow up disposition ED DispositionReferralsDO CTOR,UNKNOWN Portions of this section were scribed by TORI BARRAGAN on 07/23/19 at 0640 MATTHEW BOLANOS 07/23/19 0714:Last lab [place] [address] DEPARTMENT OF DIAGNOSTIC IMAGING Patient Name: SAHIL CANTU : 1945Patient Addr.: [address] MR#: [id number] [place] [address] Phone #: Dictate Date: 07/23/19 0653Ordering Ciara: KAUSHIK LOREDO MD ID: ABUSY Trans Date :Copies to: ITZ TAYLOR MD;CC ID: [Patient Loc: Yovani #: [id number] Number(s): [id number] [facility]: - 07/23/19 0630 Exam: PELVIS PROCEDURE: PELVIS CO MPARISON: None. INDICATIONS: FALL,INJURY,PAIN,TENDERNESS VIEWS: 1 FINDINGS: BONES: Normal. No significant arthropathy or acute abnormality. SOFT T ISSUES: Negative. No visible soft tissue swelling. EFFUSION: None visible. OTHE R: There are vascular calcifications. CONCLUSION: No acute disease. Dicta ladonna by: Chris Negrete on 07/23/2019 at 6:46 AM Approved by: Chris Negrete on 07/23/2019 a t 6:52 AM Signed: 07/23/19 0653 CHRIS NEGRETE MD This is a Signed report >>>>>>>>>>>>>>>>>>>>>>>>>>>>>>>>>>>>>> END OF PAGE <<<<<<<<<<<<<<<<<<<<<<< <<<<<<<<<<<<<<< PATIENT'S NAME: SAHIL CANTU DATE OF EXAM: 07/23/19 REPORT #:[id number] TRN: TBY This is a Signed report E ND OF REPORT L ab Results These Lab results have been reviewed and interpreted by me.Laborator y Tests 07/23 07/23 07/23 0720 0551 0537 Blood Ga s VBG Lactate (0.00 - 2.00 mmol/L) 2.38 *H Chemistry Sodium (135 - 145 mmol/L) 142 Potassium (3.5 - 5.1 mmol/ L) 3.7 Chloride (98 - 107 mmol/L) 109 H Carbon Dioxide (21 - 32 mmol/L) 3 0 Anion Gap (8 - 20 mmol/L) 3.0 L BUN (7 - 18 mg/dL) 14 Creatinine (0.700 - 1.300 mg/d L) 1.660 H Est Cr Clr Drug Dosing (>=60.00 mL/min) 36.83 Est GFR (MDRD) Af Amer (>=60.0 mL/min) 49.56 Est GFR (MDRD) Non-Af (>=60.0 mL/min) 40.96 BUN/Creatinine Ratio (6.0 - 20.0) 8.4 Glucose (74 - 106 mg/dL) 186 H Calculated Osmolality (273 - 304 mos/kg) 288 Calcium (8.5 - 10.1 mg/dL) 8.8 Tot al Bilirubin (0.2 - 1.0 mg/dL) 0.3 AST (15 - 37 U/L) 11 L ALT (16 - 61 U/L) 19 Alkaline Phosphatase (45 - 117 U/L) 42 L Troponin I (0.015 - 0.045 ng/mL) < 0.015 Total Protein (6.4 - 8.2 g/dL) 6.7 Albumin (3.4 - 5.0 g/dL) 3.2 L Globulin (2.6 - 3.8 g/dL) 3.5 Albumin/Globulin Ratio (1.0 - 5.0) 0.9 L Coagulation PT (10.2 - 13.2 sec) 12.0 INR 1.03 APTT (26 .2 - 38.2 sec) 28.1 Hematology WBC (4.00 - 10.00 K/uL) 3.78 L RBC (4.63 - 6.08 M/uL) 3.98 L Hgb (13.7 - 17.5 g/dL) 12.3 L Hct (40.1 - 51.0 %) 38.1 L MC V (80.0 - 96.0 fL) 95.7 MCH (27.0 - 33.2 pg) 30.9 MCHC (32.2 - 35.5 g/dL) 32.3 RDW (11.6 - 14.4 %) 1 2.3 Plt Count (150 - 450 K/uL) 173 MPV (8.5 - 11.8 fL) 10.5 Immature Gran % (Auto) (0.1 - 0.3 %) 0.3 Immature Gran # (Auto) (0.01 - 0.03 K/uL ) 0.01 Neutrophils % (38.9 - 69.8 %) 41.5 Lymphocytes % (21.7 - 51.7 %) 45.5 Monocy caity % (4.7 - 12.2 %) 10.3 Eosinophils % (0.8 - 7.0 %) 1.9 Basophils % (0.1 - 1.2 %) 0.5 Neutrophils # (1.46 - 7.12 K/uL) 1.57 Lymphocytes # (0.92 - 4.30 K/uL) 1.72 Monocy caity # (0.24 - 0.86 K/uL) 0.39 Eosinophils # (0.04 - 0.5 4 K/uL) 0.07 Basophils # (0.01 - 0.08 K/uL) 0.02 Nucleated RBCs (0.0 - 0.2 /100WBC) 0.0 Toxicology Valproic Acid (50.0 - 100.0 ug/mL) 40.0 L Portions of this section were scribed by JACLYN FRY on 07/08 11/24 at 0807 Medical Decision/Progress/CC Progress/ReassessmentTime 0827CommentsPt signed out to me by Dr. Taylor. On reassessment, pt awake and alert, at [facility] per family. Events as described concerning for syncope, hypoglycemia, po ssible seizure; awaiting CT brain result w/ plan for admission. Portions of this sec tion were scribed by JACLYN FRY on 07/23/19 at 0826 Disposition ED Disposit ionDecision made to Hospitalize YesHosp or Disch Decision Dt 07/23/19Hosp [place] 0913AdmittingSASKIA BURGER,SHIPRADiscussion with attending case discussed fully, aware-ED workup/findings, agree w/management/plan, accept transfer of careDisposition PATSLHClinical ImpressionPrimary Impression: SyncopeQua lifiers: Syncope type: unspecified Qualified Code: R55 - Syncope and collapseConditio n F Portions of this section were scribed by JACLYN FRY on 07/23/19 at 0923 Melinda ctronically Signed by BRANDON BURGER,ITZ on 07/23/19 at 1614 at 1851 ITZ TAYLOR MD Electronic ally Signed 07/23/19 1614MATTHEW BOLANOS MD Electronically Ketty d 07/23/19 185 Providers:BRANDON BURGER,MATTHEW PATEL MDReport Entere d Date/Time: 07/23/19 0532Current Report Status: Signed Report #: [id number] PCP ID: NILaura ATTENDING ID: SHSHA AUTHOR ID: ERROL Name Value Range Interpretation Code Description Data Iman rce(s) Supporting Document(s ) ID Date Data Source [id number] 07/23/2019 08:25:00 AM EST [facility] MENT OF DIAGNOSTIC IMAGING Patient Name: SAHIL CANTU : 1945 Patient Addr.: Sol MARIN MR#: [id number] [place] [address] Patient Phone #: Dictate Date: 07/23/19 1616 Ordering M.D.: BRANDON BURGER,ITZ BURGER ID: [id number] Trans Date: Copies to: ; CC ID: ; Patient Loc: L.5N L.511-01 Report #: [id number] Order Number(s): [id number] Site: [facility] Exam Date/Time: 1- Exam: EKG, Routine 12 Lead PROCEDURE: EKG, 12 LEAD ROUTINE COMPARISON: None. Ventricular Rate: 58.00 BPM RI Interval: 190.00 ms Q RS Duration: 88.00 ms PRT [place]: 65 17 15 QT/QTC 438/429 CONCLUSION : SINUS BRADYCARDIA OTHERWISE NORMAL ECG Dictated by: Jarad raza MD on 07/23/2019 at 4:16 PM Approved by: Jarad Basilio MD on 0 07/23/2019 at 4:16 PM APPENDIX: Signed: 07/23/19 JARAD BASILIO MD TRN: TBY Name Value Range Interpretation Code Description Data Iman rce(s) Supporting Document(s ) ID Date Data Source [id number] 07/23/2019 03:44:00 PM [facility] PATIENT: SAHIL CANTU STATUS: ADM INoACCOUNT #: [id number] ADM UNIT #: [id number] ROOM/BED: [place] [address]SEX: M ATTEND: ASHLEY KRUGER MD : [birth year] AGE: 73 AUTHOR: ASHLEY KRUGER MD PCP: DOCTOR,NOT IN DICTIONARY Service Date/Time: 0 0923 HPIMedication Review Pt med rev'd,ord,pend rec.ADMITTED DATE: 0 Chief Complaint:. [Syncope] History of Present Illness: [73-year-old male with a past medical history as notedbelow including diabetes, dementia, tremors wh o lives with his presented to the emergency room after he passed out at [facility] home this morning. As per his the patient got up to go to the bathroom and he she heard a thud and he was found on the floor. The patient was disoriented afte rwards she gave him orange juice but he was unable to drink it and he remained is di soriented but she gave him somesugar solution and he slowly came back to his normal se lf. Patient has recently started taking insulin at bedtime. His fingerstick glu cose was high when measuredby EMS. The denies any recent sickness illness or ot her new medications. Patient is currently comfortable, denies any headache, shortn ess of breath, chest pain.] Past Medical History: KIDNEY STONES, NIDDM Past Arais rgical History: DENIES Medications: AllergiesCoded Allergies:No Known Allerg ies (05/09/13) Social/Family HistorySocial History denies smoking, denies alcohol i ntakeFamily HistoryNo Known Family History. Review of SystemsConstitutional Consti tutional Denies chills, Denies feverEyes Eyes denies discharge, denies rednessE NT ENT denies nasal congestion, denies sore throatCardiovascular Cardiovascul ar denies chest pain, denies palpitationsRespiratory Respiratory denies cough, denies shortness of breath, denies trouble breathingGastrointestinal Gastrointestinal denies abdominal pain, denies diarrhea, denies nausea, denies v omitingMusculoskeletal Musculoskeletal denies back pain, denies joint pain, den ies spasms, denies weaknessSkin Skin denies rashNeuro Neuro reports black out, denies confusion, denies dizzy, denies headache Objective.Height: ft: 5 in: 6 cm: 167.6 Weigh t: lbs: 151 k.492 BMI: 24.383BMI Classification: Normal Weight Date: Time: 1105Vital Signs Result Date Time B/P 120/57 07/23 1104 Temp 97.0 07/23 1104 Pulse 66 07/23 1104 Resp 16 07/23 1104 Pulse Ox 100 07/23 0906 Physical Exam Physical ExamConstitutional alert, awake, no acut e distressEyes Eye Exam bilateral eye anicteric, bilateral eye lids normalEENT Throat/Mouth mucosa pink/moist, oropharynx WNLCardiovascular regular rhythm, rate w ithin normal limits, normal heart soundsRespiratory breath sounds equal bi lat, breath sounds clear bilatGI Abdomen soft, non-tender, bowel sounds WNLMuscul oskeletal Extremities no edema, non-tender, Right arm resting tremorSkin/Integumenta ry color normal, dry, warmNeuro no gross motor deficit, speech normal Sepsis Focu sed ExamSepsis focused exam performed: N/A Core Measures Stroke/TIANew Onset STK/TI A? No Problem, Assessment PlanPROBLEM, ASSESSMENT PLAN: 1. Syncope ICD Code R55 - Syncope and collapse Qualifiers Syncope type: unspecified Qualified Code : R55 - Syncope and collapse Assess Plan:73 yo male admitted with: -unwitnessed sync ope and fall: Seizure versus vasovagal syncope versus hypoglycemia. Blood suga rs were high when they were checked. Patient is currently asymptomatic, Neurology has been consulted. Admit to telemetry, Cardiology has been consulted. Check or thostatic blood pressure, check carotid Doppler. CT head was negative. Monitor blood sugars closely. -acute renal failure: 1.66 at the time of admission, prior rec ords show creatinine of 1.0, likely from dehydration will start him on gentle hyd ration and repeat BMP in a.m.. Monitor intake and output. Avoid nephrotoxin me dications. Check UA -DM:fingersticks ACHS, humalog SS.check hba1c,avoid long acting agents,carb controlled diet. Patient is on metformin at home, and also has acute re nal failure, might explain the lactic acidosis. Lactic acidosis has normalize d on subsequent testing. Will avoid metformin for now -dementia: Stable, is being seen by Neurology, supportive care, frequent reorientation. Continue Aricep t. -essential tremors: Continue Depakote bid. -BPH: Continue Proscar, Flomax. -A nemia: Normocytic, normochromic. There is no evidence of bleeding at this time. W ill continue to monitor. 2. Acute renal failure ICD Code N17.9 - Acute kidney failure, unspecified 3. Diabetes ICD Code E11.9 - Type 2 diabetes mellitus without complications 4. Dementia ICD Code F03.90 - Unspecified dementia without behaviora l disturbance 5. BPH (benign prostatic hyperplasia) ICD Code N40.0 - Benign p rostatic hyperplasia without lower urinary tract symptoms 6. Anemia ICD Code D64 .9 - Anemia, unspecified 7. Lactic acidosis ICD Code E87.2 - Acidosis PROPHYLAXIS M EASURESscd Billing Inpatient CodesInitial/Cons [id number] Electronically S igned by ASHLEY KRUGER MD on 07/23/19 at 1544 ASHLEY KRUGER MD Electronic ally Signed 07/23/19 1544 Providers:ASHLEY KRUGER MD Report Entered Date/Time: 07/23/19 0923Current Report Status: Signed Report #: [id number] PCP ID: DRNID ATTENDING ID: SHSHA AUTHOR ID: DAMARIS Name Value Range Interpretation Code Description Data Iman rce(s) Supporting Document(s ) ID Date Data Source [id number] 07/23/2019 01:41:00 PM EST [facility] DEPART MENT OF DIAGNOSTIC IMAGING Patient Name: SAHIL CANTU : 1945 Patient Addr.: 43 [address] MARIN MR#: [id number] [place] [address] Patient Phone #: Dictate Date: 07/23/19 1440 Ordering M.D.: DIAMOND BURGER,TATYANA Mendoza MD ID: HUGJO Trans Date: Copies to: DIAMOND BURGER,TATYANA Mendoza; SASKIA BURGER,ASHLEY; CC ID: ; Patient Loc: Araceli Connolly511-01 Report #: [id number] Order Number(s): -[id number] Site: [facility] Exam Date/Time: 07/23/19 1341 Exam: DOPPLER,CAROTID,BILATERAL PROCEDURE : US BILATERAL CAROTID DOPPLER COMPARISON: None. INDICATIONS: Syncope VIEWS: The internal carotid arteries, common carotid arteries, carot id bulbs, vertebral arteries are evaluated bilaterally with color and spectral anal ysis. Measurement of carotid stenosis is based on velocity parameters that cor relate with NASCET based stenosis levels. FINDINGS: There is no significant a rteriosclerotic plaque. Peak systolic velocity of the right internal carotid a rtery is 55 centimeters/second. Peak systolic velocity of the right common ca rotid artery is 89 centimeters/second. The ratio of the right internal carotid johnny ry divided by the common carotid artery is 0.6. Right antegrade vertebral flow is present. Peak systolic velocity of the left internal carotid artery is 49 c m/sec. Peak systolic velocity of the left common carotid artery is 81 centimeters/ second. The ratio of the left internal carotid artery divided by the common car otid artery is 0.6. Left antegrade vertebral flow is present CONCLUSI ON: 1. There is no hemodynamically significant stenosis. 2. This represen ts between 0-41% diameter stenosis by NASCET based criteria. Dictated by: Yash Sam MD on 07/23/2019 at 2:21 PM Approved by: Amber Sam MD on 07/23/2019 at 2:40 PM Signed: 07/23/19 1440 AMBER SAM MD TRN: TBY Name Value Range Interpretation Code Description Data Iman rce(s) Supporting Document(s ) ID Date Data Source [id number] 07/23/2019 02:26:00 PM [facility] SAHIL CANTU STATUS: ADM INoACCOUNT #: [id number] ADM UNIT #: [id number] ROOM/BED: [place] [address]SEX: M ATTEND: GERHARD KRUGER MDOB: [birth year] AGE: 73 AUTHOR: POLLY SHAW MD PCP: DOCTOR,NOT IN DICTIONARY Service Date/Time: 07/23/19 1411 Cardio logy ETHAN,[id number], is a 73 M who was admitted on 07/23/19 Chief Com plaint: SYNCOPE Reason for consult: Syncope History of Present Illness: 73 yo male, with a hx of DM, renal stones, no prior known CV disease or concerns, recently started on insulin by report, presents with an epiosde of syncope. Pt is a fair histori an but is unable to provide any useful details. He states that he awoke around 4am to use the bathroom but then remembers being on the floor. Doenstknow how he go t there. Per chart was diaphoretic and unresponsive. Given some juice with impr ovement in mental status. No report of CP, SOB, palpitations, LH, dizziness, nauea or vomiting. No recent illness. No fever chills. States he has been eating/drinki ng normally. No activity intolerance. No prior CV hx or testing that he is aware of. BP/HR normal. EKG normal. Past Medical History: KIDNEY STONES, NIDDM Family H istory: No premature CAD Past Surgical History: DENIES AllergiesCoded Allergi es:No Known Allergies (05/09/13) Current MedsCURRENT MEDSCurrent Medications - SC HDonepezil HCl 5 MG DAILY PO Finasteride 5 MG DAILY PO Wren sulosin HCl 0.4 MG HS PO Divalproex Sodium 125 MG Q12H PO (CKD) Sertraline HCl 50 MG DAILY PO Insulin Human Lispro SLIDING SCALE ACHS SQ Sodium Chloride 1,000 ML CONTINUOUS IV IV So cial/Family HistorySmoking History non-smokerDrinking History denies hx alc ohol abuseSubstance Abuse denies hx recreatio drugsLives homeFamily HistoryRelation no t specified for: Family history: Dementia Family history: Diabetes Family history : Stroke Cardiology ROS ROSLimited because patient is poor historianConstitutionald enies chills, denies fever, denies malaise, denies weaknessCardiovasculardenies ches t pain, denies palpitaion, denies dyspnea, denies diaphoresis, denies jaw pain, rep orts syncopeRespiratorydenies cough, denies short of breath, denies wheezing, denies hemoptysisGastrointestinal/Abdominaldenies abdominal pain, denies epigastric, denie s diarrhea, denies nausea, denies vomiting, denies hematemesis, denies melenaEENTden ies diplopia, denies epistaxisGenitourinarydenies hematuria, denies urgency, denies polyuria, reports nocturiaMusculoskeletaldenies back pain, denies myalgiaSkindenies rashHematologic/Lymphaticdenies anemiaNe urodenies headache, denies head injury Cardiology exam.Height: ft: 5 in: 6 cm: 167.6 Weight: lbs: 151 k.492 BMI: 24.383BMI Classification: Normal Weight Date: Time: 1105Vital Signs Result Date Time B/P 120/57 07/23 1104 Temp 97.0 07/23 1104 Pulse 66 07/23 1104 Resp 16 07/23 1104 Pulse Ox 100 07/23 0906 Physical ExamCardiovascular PMI 5TH ICS, regular rhythm, normal S1 S 2, no audible S3 S4 gallop,no rubRespiratory adequate air exchange, no wheeze, no ral es, no ronchiAbdomen soft, non-tenderHEENT normocephalicNeck supple, no JVD, caroti d bruit inaudibleExtremities full range of motion, no pedal edemaNeuro affect jose l, normal speech, no focal deficit, normal cognition Last Lab Results. 07/23 05 Chemistry Sodium (13 5 - 145 mmol/L) 142 Potassium (3.5 - 5.1 mmol/L) 3.7 Chloride (98 - 107 mmol/L) 109 BUN (7 - 18 mg/dL) 14 Creatinine (0.700 - 1.300 mg/dL) 1.660 Glucose (74 - 106 mg/dL) 18 6 Calcium (8.5 - 10.1 mg/dL) 8.8 Troponin I (0.015 - 0.045 ng/mL) < 0.015 07/23 0551 Hematology WBC (4.00 - 10.00 K/uL) 3.78 Hgb (13.7 - 17.5 g/dL) 12.3 Hct (40.1 - 51.0 %) 38.1 Plt Count (150 - 450 K/uL) 173 07/23 0551 Coagulation I NR 1.03 APTT (26.2 - 38.2 sec) 28.1 I OI O 07/23 0800 Intake Total Output Total Balance Patient 151 lb Weight CAD/CHF Core Measures CADAcute coronary syndrome dx No CHFCHF diagnosis No Problem, Assessment PlanPROBLEM, ASSESSMENT PLAN 1. Syncope ICD Code: R55 - Syncope and collapse Qualifiers: Syncope type: unspecified Qualified Code : R55 - Syncope and collapse Chest pain risk stratification: not applicable.Impressio n: 73 yo male with a hx of DM, renal stones presents with unwitnessed syncope. Diffe rential dx includes hypoglycemia, autonomic dysfunction/orthostatic hypotension, tayler turition syncope (though not clear he was actually urinating at the time), arrhyth bismark. Given normal EKG less likely occult cardiac disease though needs evaluation. Neuro following. On tele. Plan: 1. Echocardiogram2. Carotid doppler3. Ortho static BPs4. Continued telemetry monitoring.5. Neuro followup Dr Dimas/Abdi to see tomorrow Sincerely, Polly Shaw MD FAC CC: PCP My office Consult ant: [] at 1425 POLLY SHAW MD Electronically Signed 07/23/19 1425 Providers:Yash SHAW MD Report Entered Date/Time: 07/23/19 1411Current Report Status: Signed Rep ort #: [id number] PCP ID: DRNID ATTENDING ID: SHSHA AUTHOR ID: SIN SA Name Value Range Interpretation Code Description Data Iman rce(s) Supporting Document(s ) ID Date Data Source [id number] 07/23/2019 12:22:00 PM EST [facility] SAHIL CANTU STATUS: ADM INoACCOUNT #: [id number] ADM UNIT #: [id number] ROOM/BED: [place] [address]SEX: M ATTEND: LELA KRUGER MDRADOB: [birth year] AGE: 73 AUTHOR: TATYANA WATERMAN MD PCP: DOCTOR,NOT IN DICTIONARY Service Date/Time: 07/23/19 1213 Sarai Robertson was admitted on 07/23/19 to ASHLEY KRUGER MD Chief Complaint: SYNCOPEReason for consult: Syncope History of Present Illness: 73-year-old right-handed male with several comorbidities including nephrolithiasis, DM 2, dementia, essenti al tremor, followed by a neurologist elsewhere, who at around 4:00 a.m. this morning went to the bathroom and passed out. His heard the fall, came to him and he was motionless lying on the floor with eye rolling, and was very diaphoretic. He cameto after 1-2 minutes, and there was no seizure activity. She gave him some swe et juice to drink and came to about a minute after that. Fingerstick by EMS arrived at the home demonstrated a glucose of 267. He was recently started on insulin about a week ago. He is unable to offer meaningful history because of dementia. Past Medical History: KIDNEY STONES, NIDDM Past Surgical History: DENIES Home Medi cationsMedication Dose/Rte/Freq Days Qty Entered Last Max Daily Dose Reviewed Sitagliptin Phos/Metformin 1 TABLET PO DAILY 05/09/13 07/23/19 HC l 2241 1110 (Janumet 50 -1,000 MG Tablet)Strength: 1 EACH TABLET SITAGLIPTIN PHOSPHATE 25 MG PO DAILY 07/23/19 07/23/19 (JANUVIA) 0526 1109Strength: 25 MG TABLET GLIMEPIRIDE (AMARYL) 1 MG PO DAILY 07/23/19 07/23/19trength: 1 MG TABLET 0526 1111 FINASTERIDE (PROSCAR) 5 MG PO D AILY 07/23/19 07/23/19trength: 5 MG TABLET 0527 1111 SERTRALINE HCL (ZOLOFT) 25 MG PO DAILY 07/23/19 07/23/19trength: 25 MG TABLET 0527 1109 LISINOPRIL (ZESTRIL) 2.5 MG PO DAILY 07/23/19 07/23/19trength: 2.5 MG TABLET 0527 1107 DIVALPROEX SODIUM 125 MG PO BID 07/23/19 07/23/19 (DEPAKOTE SPRINKLE) 526 1109Strength: 125 MG CAP.SPRINK Insulin 15 UNITS SQ HS 07/23/19 07/23/19 Glargine,Hum.rec.anl og 0527 1111 (Lantus)Strength: 100 UN IT/1 ML VIAL Tamsulosin HCl (Flomax) 07/23/19 0 07/23/19trength: 0.4 MG CAP.ER.24H 525 1039 D ONEPEZIL HCL (ARICEPT) 07/23/19 07/23/19trengt h: 5 MG TABLET 526 1039 AllergiesCoded Allergies:No Known Allergies (05/09/13) Social/Family HistoryFamily HistoryRelat ion not specified for: Family history: Dementia Family history: Diabetes Fami ly history: Stroke Physical ExamVital signsVital Signs Date Time Temp Pul se Resp B/P B/P Pulse O2 O2 Flow FiO2 Mean Ox Delivery Rate 07/23 1104 97.0 66 16 120/57 07/23 1019 97.0 07/23 0906 66 120/57 100 07/23 0901 73 122/73 100 07/23 0856 82 123/71 100 / 0851 87 112/74 100 / 0847 56 122/66 100 / 0840 57 127/71 99 07/23 0837 64 128/60 100 / 0830 55 112/70 100 / 0826 47 125/66 100 /16 0820 58 119/70 100 / 0815 62 117/61 100 /16 0810 62 116/70 100 / 0805 62 120/66 100 /16 0800 55 118/62 100 /16 0755 71 108/58 100 /16 0750 73 106/64 100 /16 0746 74 131/81 100 /16 0740 60 118/73 100 /16 0735 63 100 /16 0730 82 100 /16 0725 44 99 /16 0720 84 117/75 100 /16 0715 75 113/64 100 /16 0711 74 111/49 100 /16 0705 54 102/56 100 02/16 0700 77 116/55 100 07/23 0656 56 110/59 100 07/23 0635 62 108/67 100 02/16 0630 52 107/63 100 07/23 0625 63 105/51 100 07/23 0620 63 94/54 100 07/23 0615 57 89/57 100 07/23 0601 60 92/52 100 07/23 0546 60 96/51 99 / 0531 96.2 54 16 96/52 100 07/23 0519 96.2 54 16 96/52 100 Neurological Examination HEENT: N C/ATMS: Alert, knows he is in hospital, overall confused with poor short-term me moryCN: II-XII are intactMotor: 5/5, no drift, no focal weaknessCerebellar: Ess ential tremor in both upper extremities, no dysmetria, not walkedSensory: IntactDTR s: Hypoactive, ankle jerks absent, plantar responses are flexor Diagnostic Findin gs Diagnostic FindingsLaboratoryCT brain: Unremarkable Laboratory Tests 07/23 07/23 07/23 07/23 0955 0950 0720 0551 Blood Gas VBG Lacta te (0.00 - 2.00 mmol/L) 2.38 *H Chemistry Sodium (135 - 1 45 mmol/L) 142 Potassium (3.5 - 5.1 mmol/L) 3.7 Chloride (98 - 107 mmol/L) 109 H Carbon Dioxide (21 - 32 mmol/L) 30 Anion Gap (8 - 20 mmol/L) 3.0 L BUN (7 - 18 mg/dL) 14 Creatinine (0.700 - 1.300 mg/dL) 1.660 H Est Cr Clr Drug Dosing (>=60.00 mL/min) 36.83 Est GFR (MDRD) Af Amer (>=60.0 mL/min) 49.56 Est GFR (MDRD) Non-Af (>=60.0 mL/min) 40.96 BUN/Creatinine Ratio (6.0 - 20.0) 8.4 Glucose (74 - 106 mg/dL) 186 H Calculated Osmolality (273 - 304 mos/kg) 288 Lactic Acid (0.4 - 1.9 mmol/L) 1.9 Calcium (8.5 - 10.1 mg/dL) 8 .8 Total Bilirubin (0.2 - 1.0 mg/dL) 0.[address] (15 - 37 U/L) 11 L ALT (16 - 61 U/L) 19 Alkaline Phos phatase (45 - 117 U/L) 42 L Troponin I (0.015 - 0.045 ng/mL) < 0.015 Total Protein (6.4 - 8.2 g /dL) 6.7 Albumin (3.4 - 5.0 g/dL) 3.2 L Globulin (2.6 - 3.8 g/dL) 3.5 Albumin/Globulin Ratio (1.0 - 5.0) 0.9 L Coagulation PT (10.2 - 13.2 sec) 12.0 INR 1.03 APTT (26.2 - 38.2 sec) 28.1 Hematology WBC (4.00 - 10.00 K/uL) 3.78 L RBC (4.63 - 6.08 M/uL) 3.98 L Hgb (13.7 - 17.5 g/dL) 12.3 L Hct (40.1 - 51.0 %) 38.1 L MCV (80.0 - 96.0 fL) 95.7 MCH (27.0 - 33.2 pg) 30.9 MCHC (32.2 - 35.5 g/dL) 32.3 RDW (11.6 - 14.4 %) 12.3 Plt Count (150 - 450 K/uL) 173 MPV (8.5 - 11.8 fL) 10.5 Immature Gran % (Auto) (0.1 - 0.3 %) 0.3 Immature Gran # (Auto) (0.01 - 0.03 K/uL) 0.0 1 Neutrophils % (38.9 - 69.8 %) 41.5 Ly mphocytes % (21.7 - 51.7 %) 45.5 Monocyte s % (4.7 - 12.2 %) 10.3 Eosinophils % (0.8 - 7.0 %) 1.9 Basophils % (0.1 - 1 .2 %) 0.5 Neutrophils # (1.46 - 7.12 K/uL) 1.57 Lymphocytes # (0.92 - 4.30 K/uL) 1.72 Monocytes # (0.24 - 0.86 K/uL) 0.39 Eosinophils # (0.04 - 0.54 K/uL) 0.07 Basophils # (0.01 - 0.08 K/uL) 0.02 Nucleated RBCs (0.0 - 0.2 /100WBC) 0.0 Urines Urine Color (YELLOW) YELLOW Urine Clarity (CLEAR) CLEAR Urine pH (4.6 - 8.0) 5.5 Ur Specific [place] (1.001 - 1.03 5) 1.025 Urine Protein (NEGATIVE) 30 Urine Ketones (NEGATIVE mg/dL) Trace Urine Blood (NEGATIVE ) NEGATIVE Urine Nitrite (NEGATIVE) NEGATIVE Urine Bilirubin (NEGATIVE) NEGATIVE Urine Urob ilinogen (0.2 - 0.9 E.U./dL) 0.2 Urine Leukocytes (NEGATIVE) NEGATIVE Urine RBC (Auto) (0 - 3 /HPF) 0- 3 Urine Bacteria (Auto) (NEGATIVE /HPF) NEGATIVE Urine WBC (0 - 5 /HPF ) 0-5 Ur Squamous Epith Cells (0 - 5 /LPF) 0-5 Urine Glucose (NEGATIVE mg/dL) NEGATIVE 07/23 0537 Toxicology Ava proic Acid (50.0 - 100.0 ug/mL) 40.0 L Core Measures Stroke/TIANew Onset STK/TI A? No Problem, Assessment PlanPROBLEM, ASSESSMENT PLAN 1. Syncope ICD Code: R55 - Syncope and collapse Qualifiers: Syncope type: unspecified Qualified Code : R55 - Syncope and collapse . * Probable vasovagal syncope, rule out micturition syncope, I doubt that this was hypoglycemia* SDAT* Essential tremor Recommendations * Carotid duplex* Orthostatic blood pressure checks* Telemetry* Cardiology input Elec tronically Signed by TATYANA WATERMAN MD on 07/23/19 at 1222 TATYANA WATERMAN MD Electronically Signed 07/23/19 1222 Providers:TATYANA WATERMAN MD Entered Date/Time: 07/23/19 1213Current Report Status: Signed Report #: [id number] PCP ID: DRNID ATTENDING ID: SHSHA AUTHOR ID: HUGJO Name Value Range Interpretation Code Description Data Iman rce(s) Supporting Document(s ) ID Date Data Source [id number] 07/23/2019 10:24:00 AM EST [facility] Name Value Range Interpretation Description Data Sup porting Code Source(s) Document(s ) LACTIC 1.9 0.4-1.9 [facility] ACID mmol/L [facility] ID Date Data Source [id number] 07/25/2019 09:41:00 AM EST [facility] Name Value Range Interpretation Description Data Sup porting Code Source(s) Document(s ) CLEAN CATCH No [facility] URINE growth. [facility] ID Date Data Source [id number] 07/23/2019 10:02:00 AM EST [facility] Name Value Range Interpretation Description Data Sup porting Code Source(s) Document(s ) POCT COLOR YELLOW YELLOW [facility] POCT CLARITY CLEAR CLEAR [facility] POCT GLUCOSE NEGATIVE NEGATIVE [facility] mg/dL [facility] POCT BILIRUBIN NEGATIVE NEGATIVE [facility] POCT KETONES Trace NEGATIVE [facility] mg/dL [facility] POCT SPECIFIC 1.025 1.001-1.03 [facility] GRAVITY 5 [facility] POCT BLOOD NEGATIVE NEGATIVE [facility] POCT pH 5.5 4.6-8.0 [facility] POCT PROTEIN 30 NEGATIVE [facility] POCT 0.2 0.2-0.9 [facility] UROBILINOGEN E.U./dL [facility] POCT NITRITE NEGATIVE NEGATIVE [facility] POCT NEGATIVE NEGATIVE [facility] LEUKOCYTES [facility] ID Date Data Source [id number] 07/23/2019 10:12:00 AM EST [facility] Name Value Range Interpretation Description Data Sup porting Code Source(s) Document(s ) WBC IQ 0-5 /HPF 0-5 [facility] RBC IQ 0-3 /HPF 0-3 [facility] SQUAMOUS 0-5 /LPF 0-5 [facility] EPITHELIAL IQ [facility] BACTERIA IQ NEGATIVE NEGATIVE [facility] /HPF [facility] ID Date Data Source [id number] 07/28/2019 11:50:00 PM EST [facility] No growth.NO GROWTH 5 DAYSNo growth.NO G ROWTH 5 DAYS Name Value Range Interpretation Code Description Data Iman rce(s) Supporting Document(s ) ID Date Data Source [id number] 07/23/2019 08:02:00 AM [facility] MENT OF DIAGNOSTIC IMAGING Patient Name: SAHIL CANTU : 1945 Patient Addr.: Sol MARIN, MR#: [id number] [place] [address] Patient Phone #: Dictate Date: 07/23/19721 Ordering M.D.: BRANDON BURGER,ITZ BURGER ID: ABUSY Trans Date: Copies to: FIDENCIO Haney MD,ITZ; SASKIA BURGER,ASHLEY; CC ID: ; Patient Loc: L.5N [id number].[id number] Report #: [id number] Order Number(s): [id number] Site: [facility] Exam Date/Time: 07/23/19801 Exam: CT BRAIN W/O IV CONTRAST PROCEDURE: CT BRAIN WITH OUT CONTRAST COMPARISON: None. INDICATIONS: SYNCOPE TECHNIQUE: CT images were obtained without contrast material. This CT was performed [employer] dose reduction software. FINDINGS: CEREBRUM: No edema, hemorrhage, ma ss, acute infarction, or inappropriate atrophy. CEREBELLUM: No edema, hem orrhage, mass, acute infarction, or inappropriate atrophy. BRAINSTEM: No edema, hemorrhage, mass, acute infarction, or inappropriate atrophy. CSF SPACES : Ventricles, cisterns, and sulci are appropriate for age. No hydrocephalus, subarachnoid hemorrhage, or mass. SKULL: No mass or other significant visible le sri. SINUSES: Limited views demonstrate no significant mucosal thick ening or fluid. ORBITS: Limited views are unremarkable. OTHER: Negative. CONCLUSION: No acute disease. Dictated by: Chris Negrete on 0 07/23/2019 at 7:21 AM Approved by: Chris Negrete on 07/23/2019 at 7:22 AM Signed: 07/23/19721 CHRIS NEGRETE MD TRN: TBY Name Value Range Interpretation Code Description Data Iman rce(s) Supporting Document(s ) ID Date Data Source [id number] 07/28/2019 11:50:00 PM EST [facility] No growth.NO GROWTH 5 DAYSNo growth.NO G ROWTH 5 DAYS Name Value Range Interpretation Code Description Data Iman rce(s) Supporting Document(s ) ID Date Data Source [id number] 07/23/2019 08:01:00 AM EST [facility] Name Value Range Interpretation Description Data Sup porting Code Source(s) Document(s ) LACTATE 2.38 0.00-2.00 *H [facility] SEPSIS mmol/L [facility] ID Date Data Source [id number] 07/23/2019 06:31:00 AM [facility] DEPART MENT OF DIAGNOSTIC IMAGING Patient Name: SAHIL CANTU : 1945 Patient Addr.: [address], MR#: [id number] [place] [address] Patient Phone #: Dictate Date: 07/23/19652 Ordering M.D.: BRANDON BURGER,ITZ BURGER ID: ABUSY Trans Date: Copies to: FIDENCIO Haney MD,ITZ; CC ID: ; Patient Loc: L.ER Report #: [id number] Order Number(s): [id number] Site: [facility] Exam Date/Time: 07/23 Exam: PELVIS PROCEDURE: PELVIS COMPARISON: None. I NDICATIONS: FALL,INJURY,PAIN,TENDERNESS VIEWS: 1 FINDINGS: BONES: Normal. No significant arthropathy or acute abnormality. SOFT TISSUES: N egative. No visible soft tissue swelling. EFFUSION: None visible. OTHER: There are vascular calcifications. CONCLUSION: No acute disease. Dictated by: Chris Negrete on 07/23/2019 at 6:46 AM Approved by : Chris Negrete on 07/23/2019 at 6:52 AM Signed: 07/23/19 0653 CHRIS NEGRETE MD TRN: TBY Name Value Range Interpretation Code Description Data Iman rce(s) Supporting Document(s ) ID Date Data Source [id number] 07/23/2019 05:49:00 AM EST [facility] MENT OF DIAGNOSTIC IMAGING Patient Name: SAHIL CANTU : 1945 Patient Addr.: Sol MARIN, MR#: MELCHOR FLORIAN [id number] Vi sit#: [id number] Patient Phone #: Dictate Date: 07/23/19 06 Ordering M.D.: ITZ TAYLOR MD, MD ID: ABUSY Trans Date: Copies to: ITZ ALSTON MD; CC ID: ; Patient Loc: L.ER Report #: [id number] Order Number(s): [id number] Site: [facility] Exam Date/Time: 07/23 0549 Exam: CHEST 1 VIEW AP PORTABLE ROUT PROCEDURE: CHEST 1 VIEW, AP PORTABLE ROUTINE COMPARISON: [facility] [place], XR, CXRPL, 04/02/2014, 6:52 PM. INDICATIONS: hypoglycemia VIEWS: 1 FINDINGS: LUNGS: Normal. No significant pulmonary parenchymal abn ormalities. VASCULATURE: Normal. Unremarkable pulmonary vasculature. CARDIAC: Normal. No cardiac silhouette abnormality or cardiomegaly. MEDIAST INUM: Normal. No visible mass or adenopathy. PLEURA: Normal. No ef fusion or pleural thickening. OTHER: Negative. CONCLUSION: No acute disease. Dictated by: Chris Negrete on 07/23/2019 at 6:02 AM Ap proved by: Chris Negrete on 07/23/2019 at 6:02 AM Signed: 07/08 CHRIS NEGRETE MD TRN: TBY Name Value Range Interpretation Code Description Data Iman rce(s) Supporting Document(s ) ID Date Data Source [id number] 07/23/2019 02:45:00 PM EST [facility] Name Value Range Interpretation Description Data Sup porting Code Source(s) Document(s ) HEMOGLOBIN A1C 7.9 % 3.8-6.4 Above high normal [facility] s [facility] NORMAL............................ < 5 .7 %PREDIABETES....................... 5.7-6.4 %DIABETIC....................... ... >= 6.5 %NOTE: DIAGNOSIS SHOULD BE CONFIRMED WITH REPEAT TESTING.CONDITIONS THAT SHORTEN RED CELL SURVIVAL MAY YIELDFALSELY DECREASED RESULTS. IRON DEF ICIENCY ANEMIA MAYYIELD FALSELY INCREASED RESULTS. ID Date Data Source [id number] 07/23/2019 06:21:00 AM EST [facility] Name Value Range Interpretation Description Data Sup porting Code Source(s) Document(s ) GLUCOSE 186 74-106 Above high normal [facility] mg/dL [facility] BUN 14 mg/dL 7-18 [facility] CREATININE 1.660 0.700-1. Above high normal [facility] mg/dL 300 [facility] EST.GLOMERULAR 40.96 >=60.0 [facility] FILTRATION mL/min [facility] EST.GFR 49.56 >=60.0 [facility] mL/min [facility] 36.83 >=60.00 [facility] COCKCROFT-DUNIA mL/min [place] [facility] BUN/CREAT 8.4 6.0-20.0 [facility] RATIO [facility] SODIUM 142 135-145 [facility] mmol/L [facility] POTASSIUM 3.7 3.5-5.1 [facility] mmol/L [facility] CHLORIDE 109 98-107 Above high normal [facility] mmol/L [facility] CO2 30 21-32 [facility] mmol/L [facility] ANION GAP 3.0 8-20 Below low normal [facility] mmol/L [facility] AST 11 U/L 15-37 Below low normal [facility] ALK PHOS 42 U/L 45-117 Below low normal [facility] TOTAL 0.3 0.2-1.0 [facility] BILIRUBIN mg/dL [facility] TOTAL PROTEIN 6.7 g/dL 6.4-8.2 [facility] ALBUMIN 3.2 g/dL 3.4-5.0 Below low normal [facility] GLOBULIN 3.5 g/dL 2.6-3.8 [facility] A/G RATIO 0.9 1.0-5.0 Below low normal [facility] CALCULATION [facility] CALCIUM 8.8 8.5-10.1 [facility] mg/dL [facility] Center ALTI 19 U/L 16-61 [facility] OSMOLALITY [phone] [facility] CALCULATION mos/kg [facility] ID Date Data Source [id number] 07/23/2019 06:21:00 AM EST [facility] Name Value Range Interpretation Description Data Sup porting Code Source(s) Document(s ) TROPONIN I < 0.015 0.015-0.0 [facility] ng/mL 45 [facility] RESULT RANGE INTERPRETATION:0.046 - 0.1 NG/ML = INTERMEDIATE RISK OF OR NON-FATALAMI0.11 - 0.59 NG/ML = HIGH RI SK OF OR NON-FATAL AMI>0.6 NG/ML = SUGGESTS AMI. [facility] CRITERIAAMENDED 03-31-10 ID Date Data Source [id number] 07/23/2019 06:11:00 AM EST [facility] Name Value Range Interpretation Code Description Data Iman rce(s) Supporting Document(s ) PT 12.0 sec 10.2-13.2 [facility] INR 1.03 [facility] INR IS DESIGNED TO MONITOR THOSE PATIENT S STABILIZED ONORAL ANTICOAGULANT THERAPY. IT IS NOT SUITED FOR PRE-OPSCREENING OR FOR EVALUATING CONDITIONS SUCH LIVERDISEASE.THERAPEUTIC RANGE:PATIENTS ON ORAL ANTICOAGULANTS 2.00 - 3.00PATIENTS WITH PROSTHETIC HEART VALVES 2.50 - 3.5 0 ID Date Data Source [id number] 07/23/2019 06:11:00 AM EST [facility] Name Value Range Interpretation Code Description Data Iman rce(s) Supporting Document(s ) APTT 28.1 sec 26.2-38.2 [facility] Please note the NEW REFERENCE RANGE ID Date Data Source [id number] 07/23/2019 05:59:00 AM EST [facility] Name Value Range Interpretation Description Data Sup porting Code Source(s) Document(s ) WBC 3.78 K/uL 4.00-10.0 Below low normal [address] RBC 3.98 M/uL 4.63-6.08 Below low normal [facility] HGB 12.3 g/dL 13.7-17.5 Below low normal [facility] HCT 38.1 % 40.1-51.0 Below low normal [facility] MCV 95.7 fL 80.0-96.0 [facility] MCH 30.9 pg 27.0-33.2 [facility] MCHC 32.3 g/dL 32.2-35.5 [facility] RDW 12.3 % 11.6-14.4 [facility] PLT 173 K/uL 150-450 [facility] MPV 10.5 fL 8.5-11.8 [facility] DERICK% 41.5 % 38.9-69.8 [facility] LYM% 45.5 % 21.7-51.7 [facility] MONO% 10.3 % 4.7-12.2 [facility] EOS% 1.9 % 0.8-7.0 [facility] BASO% 0.5 % 0.1-1.2 [facility] IMMATURE 0.3 % 0.1-0.3 [facility] GRANULOCYTE% [facility] The immature granulocyte count is an enu meration ofmetamyelocytes, myelocyte, and promyelocytes present in [facility] blood sa mple. It does not include band neutrophilforms. ABSOLUTE NEUTROPHIL COUNT 1.57 K/uL 1.46-7.12 [facility] LYM# 1.72 K/uL 0.92-4.30 [facility] MONO# 0.39 K/uL 0.24-0.86 [facility] EOSIN# 0.07 K/uL 0.04-0.54 [facility] BASO# 0.02 K/uL 0.01-0.08 [facility] IMMATURE GRANULOCYTES# 0.01 K/uL 0.01-0.03 [facility] NRBC 0.0 /100WBC 0.0-0.2 [facility] ID Date Data Source [id number] 07/23/2019 07:57:00 AM EST [facility] Name Value Range Interpretation Description Data Sup porting Code Source(s) Document(s ) VALPROIC 40.0 50.0-100. Below low normal [facility] ACID ug/mL 0 [facility] ID Date Data Source [id number] 04/17/2018 01:37:25 PM EST [facility] Name Value Range Interpretation Description Data Sup porting Code Source(s) Document(s ) Seasonal Clerk [employer] Interface Message Text HISTORY OF PRESENT ILLNESS 04/13/2018, 12:05 PM. History Provided by: patient, grands on and EMS Chief Complaint: tremors Sahil Cantu is a 72 y.o. male with PMHx and PSHx as listed below,presenting to the ED for tremors that began this morning, brought in by EMS. Ptcomplains of associated generalized weakness. He had similar sym ptoms 3 days agoand was seen at another facility in the city. His blood glucose was 560 at thattime. He was treated with insulin and IV fluids. son states t hat his bloodsugar dropped from 130 to 112 this morning. Pt's blood glucose was [address] Pt has no complaints at present. Pt denies fever, chest pain,mecca rtness of breath, cough, abdominal pain, nausea, vomiting, diarrhea, dysuria,swel ling, numbness, tingling, headache, and dizziness. Pt is not on dialysis.PCP: N o primary care provider on file. REVIEW O F SYSTEMS Review of SystemsConstitutional: Negative for chil ls and fever. +generalized weaknessHENT: Negative for congestion and sore throat. Respiratory: Negative for cough and shortness of breath.Cardiovascular: Negative for c hest pain and leg swelling.Gastrointestinal: Negative for abdominal pain, diarrhea, n ausea and vomiting.Genitourinary: Negative for dysuria, frequency and urgency.Skin: Negative for itching and rash.Neurological: Positive for tremors. Negative for dizzi ness, tingling andheadaches.All other systems reviewed and are negative. PAST HISTORY Past Medical History:Diagnosis Date Hyperlipidemia HypertensionHistory reviewed. No surgica l history.Social History:Social HistorySubstance Use Topics Smoking status: Never Smoker Smokeless tobacco: Never Used Alcohol use NoThe patient's home medicat ions have been reviewed.Allergies: Patient has no known allergies. PHYSICAL EXAM BP 129/73 (B P Location: Right arm, Patient Position: Lying) | Pulse 99 | Temp97.9 F (36.6 C) (Oral) | Resp 19 | Wt 156 lb (70.8 kg) | SpO2 100% | BMI25.18 kg/m Constitutional: Well developed, well n ourished. GCS is 15. No evidence ofrespiratory distress.Head: Atraumatic . Normocephalic.Eyes: PERRL. Conjunctivae are not pale.ENT: Mucous membranes are moist and intact. Oropharynx is clear and symmetric.Neck: Supple. No nuchal rigi dity. Full ROM.Cardiovascular: Regular rate. Regular rhythm. No murmurs, rubs , or gallops.Pulmonary/Chest: Clear to auscultation bilaterally. No wheezing, rales orrhonchi.Abdominal: Soft and non-distended. There is no tenderness. No rebound,guarding, or rigidity. No organomegaly. Normal bowel sounds. No pulsatilemass.Back: No CVA tenderness.Extremities: No edema. No c yanosis. Distal pulses are 2+. No calftenderness.Skin: Skin is warm and d ry. No petechiae. No purpura.Neurological: No acute focal neurological deficits can be appreciated. Alertand oriented to person, place, and time. PERRL. EOMI. Left sided facial droop(family believes that he looks like he is at baseline). Streng th is equal and5/5 in the upper and lower extremities bilaterally. No sensory def icits tolight touch. Normal speech. Normal cerebellar function geeolfdupekd-qnuk-fn nger and heel to diaz. He is not tremulous.Psychiatric: Good eye contact . Normal affect and behavior. LABORA TORY RESULTS Results for orders placed or performed during e hospital encounter of 04/13/18CB auto differentialResult Value Ref Range WBC 4 .5 4.3 - 10.6 10^3/ L RBC 4.27 (L) 4.30 - 5.80 10^6/ L Hemoglobin 12.9 (L) 13.3 - 17.0 g/dL Hematocrit 39.1 (L) 40.3 - 50.3 % MCV 91.6 81.4 - 99.0 fL MCH 30.2 26.8 - 32.9 pg M CHC 33.0 31.4 - 34.9 g/dL RDW 12.7 11.6 - 14.9 % Platelets 279 132 - 337 10^3/ L Neutrophils Absolute 3.2 1.5 - 7.5 10 ^3/ L Lymphocytes Absolute 0.9 0.7 - 3.6 10 ^3/ L Monocytes Absolute 0.4 0.2 - 1.1 10^3 / L Eosinophils Absolute 0.02 0.00 - 0.50 10^3/ L Basophils Absolute 0.0 0.0 - 0.1 10^3 / L Neutrophils Relative 70.4 41.7 - 78.9 % Lymphocytes Relative 19.9 10.8 - 45.9 % Monocytes Relative 8.9 3.7 - 15.0 % Eosi nophils Relative 0.4 0.0 - 5.7 % Basophils Relative 0.2 0.0 - 1.5 % IG Relative 0.2 0.0 - 3.0 % Abs Neutrophil Count 3,168 1,500-8,000 Cells/lk5Apstt metabolic acosta elResult Value Ref Range Sodium 136 136 - 144 mEq/L Potassium 4.5 3.5 - 5.1 mEq/L Chlo ride 102 101 - 111 mEq/L CO2 23 22 - 32 mEq/L BUN 5 (L) 8 - 20 mg/dL Glucose 164 (H) 7 0 - 110 mg/dL Calcium 8.7 8.5 - 10.1 mg/dL Creatinine 1.31 (H) 0.55 - 1.02 mg/dL An ion Gap 11 8 - 17 mEq/L eGFR >60.0 >=60.0 ml/min/1.732m2 eGFR NON AFR ICAN BENINESE 54.1 (L) >=60.0 ml/min/1.464b9Gvuvlcf function panelResu lt Value Ref Range Albumin 3.3 (L) 3.5 - 4.8 g/dL Total Protein 6.1 (L) 6.4 - 8.3 g/d L Total Bilirubin 0.4 0.3 - 1.2 mg/dL Bilirubin, Direct 0.11 0.10 - 0.50 mg/dL Bilirubin, Indirect 0.29 0 - 0.7 mg/dL Alkaline Phosphatase 47 45 - 117 U/L AST 26 15 - 41 U/L ALT 15 (L) 17 - 63 U/LLipaseResult Value Ref Range Lipase 5 8 (H) 22 - 51 U/LLactic acidResult Value Ref Range Lactic Acid 2.6 (H) 0.5 - 2.2 mmol /LProtime-INRResult Value Ref Range Protime 11.1 9.4 - 12.5 seconds INR 0.98 0.83 - 1.11APTTResult Value Ref Range aPTT 32.4 25.1 - 36.5 secondsUrinalysisResult Value Ref Range Clarity, UA Clear Clear Color, UA Colorless Colorless, Yellow, Straw Speci fic [place], UA 1.001 1.001 - 1.035 Glucose, UA 50 (A) Negative mg/dL pH, UA 6.0 5.0 - 8.0 Blood, UA Negative Negative Protein, UA Negative Negative mg/dL Bilirubin, UA Negative Negative Urobilinogen, UA Negative Negative mg/dL Ketone UA Negative Negati ve mg/dL Nitrite, UA Negative Negative Leukocytes, UA Negative NegativeBrain na triuretic peptideResult Value Ref Range BNP 121 (H) <=100 pg/mLTroponin IResult Valu e Ref Range TROPONIN I 0.04 (H) <0.03 ng/mLCKResult Value Ref Range Total CK 1 50 49 - 397 U/LEKG 12-LEAD WeaknessResult Value Ref Range Systolic Blood Pressure mmHg Diastolic Blood Pressure mmHg Ventricular Rate 89 BPM Atrial Rate 89 B PM P-R Interval 136 ms QRS Duration 78 ms Q-T Interval 348 ms QTC Calculation (Bezet) 423 ms P [place] 67 degrees R [place] 27 degrees T [place] 2 degrees - PROGRESS NOTES Orders Placed This EncounterProcedures Urine culture Blood culture #1 Blood culture #2 XR chest AP portable CT Brain Wo Contrast CBC auto differential Basic metabolic panel Hepatic function panel Lipase Lactic acid Protime-INR APTT Urinalysis Brain natriuretic peptide Troponin I CK Vital signs Pain assessment EKG 12-LEAD Weakness ED EKG 12 LEAD ED to ObservationMedicationsatorvastatin (LIPITOR) tablet 10 mg (not administered)finasteride (PROSCAR) table t 5 mg (not administered)glimepiride (AMARYL) tablet 2 mg (not administered)lisinopril (PRINIVIL,ZESTRIL) tablet 5 mg (not administered)montelukast (SINGULAIR) tab let 10 mg (not administered)tamsulosin (FLOMAX) 24 hr capsule 0.4 mg (not admin istered)sodium chloride 0.9 % flush 3 mL (3 mLs Intravenous Given 04/13/18 1236)Time: 12:10 PMEP at bedside for evaluation.Time: 1:45 PMWife at bedside. She states that the pt is completely at baseline. He has nocomplaints.Time: 2:30 PMEP at bedside for re-evaluation. Results discussed. Pt will be admitted for1. Altered mental status, unspecified altered mental status typeTime: 2:49 PMPaged Hospitalist for admission.T beltran: 2:[address] Reynaga (Hospitalist) via phone consult who is a forrester of thepatient's case. Will consult with the patient in the ED and accepts admiss ion.The patient is hemodynamically stable at the time of admission. ---- MEDICAL DECISION MAKING Vital Signs: Revi ewed the patient s vital signs.Nursing Notes: Reviewed and utilized the nursing notes.Old Medical Records: The patient's available past me dical records and pastencounters were reviewed.Laboratory Studies: Ordered and independently interpreted laboratory tests, seeabove.Imaging Studies: Imaging studie s were ordered. Radiologist's interpretationincludes:CT Brain Wo Contr astFinal ResultIMPRESSION:Unremarkable unenhanced brain CT scan. If clinical s ymptoms persist, MRIcorrelation may beobtained as clinically warranted.Mild ischemic small vessel disease.Cerebral atherosclerosis.XR chest AP portableFina l ResultIMPRESSION:Unremarkable limited portable chest radiograph.No interval ch yared.EKG: Emergency provider ordered, reviewed, and independently interpreted theEKG. Time Interpreted: 12:11 PMRate: 89 bpmRhythm: Sinus rhythm w/ PV CsInterpretation: Sinus rhythm w/ PVCs, no STEMI, no complete heart block,non-speci fic ST and Twave changesComparison: ReviewedConsultations: The emergency pr ovider consulted with another provider. See thedetails of the consultation above.--- IMPRESSION AND DISPOSITION IMPRESSI ON1. Altered mental status, unspecified altered mental status typeDISPOSITIONDis position: AdmitPatient condition: Serious COU NSELING Counseling : The emergency provider has spoken with the patient and discussedtoday s findings, in addition to providing spec [facility] details for the plan ofcare. Questions are answered. There is agreement with t he plan. Discussed thereturn indications and importance of follow-up.SCRIBE ATTESTATI ONBy signing my name below, Salma Bucrh ED Scribe, attest that [facility] has been prepared under the direction and in the presence ofRobbie Swan MD.Electronically signed: SHAUNNA Troy. 04/13/2018, 3:24 PM. Garry Burch Aldo, MD, personally performed the services described in [facility]documentb[facility]. All medical record entries made by the scribe were at [facility] systems[facility] and in my pre sence. I have reviewed the chart and dischargeinstructions (if applicable) an d agree that the record reflects my personalperformance and is accurate and complete. Robbie Castañeda MD. 04/13/2018, 3:24PM.Robbie Castañeda MD04/17/18 1337 ID Date Data Source [id number] 04/15/2018 05:05:54 PM EST [facility] Name Value Range Interpretation Description Data Sup porting Code Source(s) Document(s ) Seasonal Clerk [employer] Interface Message Text Discharge orders received. Patient agree able to discharge. Written dischargeinstructions reviewed with toni ent. All questions answered. Patient verbalizesunderstanding. Patient agreeab le to all follow up medications and appointments.All belongings gathered and sent with patient. IV removed. Telemetry monitorremoved. Discharged home with wif e. ID Date Data Source [id number] 04/15/2018 04:43:35 PM EST [facility] Name Value Range Interpretation Description Data Sup porting Code Source(s) Document(s ) Seasonal Clerk [employer] Interface Message Text [facility] EmergencyDischarge SummaryPatient Name: SAHIL Elizabeth ent age: 72 y.o.Date of : 1945dmit date: 04/13/2018Discharge date: 04/15/2018 _Reas on for Admission:Chief ComplaintPatient presents with Shaking The patient presented [facility] with tremors. Patient admitted for closemonitoring. Patient started on tele metry and ruled out for ACS/AMI. He underwentCT Head, MRI Brain and Carotid doppler ( results were unremarkable). Patientevaluated by Neurology services o f Dr. Navarro and recommended for EEG. Findingsare consistent with a non-speci fic indicator of mild diffuse or multifocalcerebral dysfunction. Patient recommended to receive Xanax trial. Potentially inthe future he might combin e need for Zoloft and Xanax by taking Lexapro.However, will leave final decisi on to be made up to primary psychiatrist orNeurologist. Patient tremors might be related to occupational exposures.Precisedischarge instructions given in details. Patient will be released homewith follow-up as outpatient. Consults:neurologySignificant Tests Per formedCt Brain Wo Contrast Result Date: 04/13/2018IMPRESSION: Unremarkable unenha nced brain CT scan. If clinical symptomspersist, MRI correlation may be obtained as clinically warranted. Mild ischemicsmall vessel disease. Cerebral a therosclerosis.Mri Brain Wo Contrast Result Date: 04/14/2018IMPRESSION: No evidence o f acute infarction. Chronic microvascular ischemicchanges in the cerebral white ma tter. Mild parenchymal volume loss.Xr Chest Ap Portable Result Date: 04/13/2018IMPRES SRI: Unremarkable limited portable chest radiograph. No interval change.Us Carot id Doppler Bilat Result Date: 04/14/2018IMPRESSION: Normal examSignific ant Procedures: noneDischarge Diagnoses:Hospital Problems Diagnosis Hypertension Hyperlipidemia Tremors AnxietyTransition Plan: Patients cond ition at time of discharge is fair.Discharge medication:Current Discharge Medication ListSTART taking these medications Detailsalprazolam (XANAX) 0.5 MG tablet Take 1 tablet by mouth 3 (three) times daily asneeded for Sleep or Anxiety. Max Daily Amount: 1.5 mg.Qty: 30 tablet, Refills: 0CONTINUE these medications which have N OT CHANGED Detailsatorvastatin (LIPITOR) 10 MG tablet Take 10 mg by mouth daily.azel astine (ASTELIN) 0.1 % nasal spray 1 spray by Nasal route 2 (two) timesdaily. Use in e ach nostril as directedfinasteride (PROSCAR) 5 MG tablet Take 5 mg by mouth daily.gli mepiride (AMARYL) 2 MG tablet Take 2 mg by mouth every morning beforebreakfast.lopez noprost (XALATAN) 0.005 % ophthalmic solution 1 drop nightly.lisinopril (PRINIVIL,ZEST RIL) 5 MG tablet Take 5 mg by mouth daily.sertraline (ZOLOFT) 50 MG tablet T renita 50 mg by mouth daily.sitagliptan-metformin (JANUMET) 50 -1000 MG per tablet Take 1 tablet by mouth 2(two) times daily with meals.tamsulosin (FLOMAX) 0.4 MG 24 hr capsule Take 0.4 mg by mouth daily.montelukast (SINGULAIR) 10 M G tablet Take 10 mg by mouth nightly as needed.Discharge Exam:BP 131/70 (BP Loca tion: Left arm, Patient Position: Sitting) | Pulse 90 | Temp98.5 F (36.9 C) (Oral) | Resp 18 | Ht 5' 6" (1.676 m) | Wt 156 lb (70.8 kg)| SpO2 99% | BMI 25.18 kg/m General Appearance: Alert, cooperati ve, no distress, appears stated ageHead: Normocephalic, without obvious abnormali ty, atraumaticEyes: PERRL, conjunctiva/corneas clear, EOM's intact both eyesThroat: Lips, mucosa, and tongue normal;Neck: Supple, symmetrical, trac hea midline, no adenopathy; thyroid: No enlargement/tenderness/nodules; no carot id bruit or JVDLungs: Clear to auscultation bilaterally, respirations u nlaboredHeart: Regular rate and rhythm, S1 and S2 normal, no murmur, rub or fuchs pAbdomen: Soft, non-tender, bowel sounds active all four quadrants, nomasses, no organomegalyExtremities: Extremities normal, atraumatic, no cyanosis or edema Pulses: 2+ and symmetric all extremitiesSkin: Skin color, texture, turgor normal, no rashes or lesionsLymph nodes: Cervical, supraclavicular, and axillary nodes normalNeurologic: CNII-XII intact. Normal strength, sensation and r eflexesthroughout. Mild tremors present.Discharge Instructions:Diet: low sodiumActivity: activity as toleratedFollow-upEfren Navarro MD[address] [place] [phone] an appoin tment as soon as possible for a visit in 1 weekfor routine follow-upPCP and Psychi atrist of patient choiceSchedule an appointment as soon as possible for a vi sitPending results at the time of discharge: noneWorkup to be done or completed as ou tpatient: noneThe hospitalization findings were discussed with the patient. The padmini atment andfollow up was explained. His questions were answered. Total time spen t fordischarge 30 min.Signed:Javier Reynaga04/15/20184:37 PM ID Date Data Source [id number] 04/15/2018 01:40:00 PM EST [facility] Name Value Range Interpretation Description Data Sup porting Code Source(s) Document(s ) GLUCOSE POC 186 mg/dL 70-110 Above high normal [facility] ID Date Data Source [id number] 04/15/2018 12:51:43 PM EST [facility] Name Value Range Interpretation Description Data Sup porting Code Source(s) Document(s ) Seasonal Clerk [employer] Interface Message Text Electroencephalogram Procedure NoteIndic ations: DiagnosticMedications: noneTechnical DescriptionThis study was performed ernesto Casperwell digital electroencephalographicrecording equipme nt.International 10-20 electrode placement was used. The record was obtained withth e patient drowsy and asleep. The record is of good technical quality forpurposes of interpretation.Activation Procedures: photic stimulation.EEG DescriptionThe ba ckground during wakefulness was symmetric and regular with a posteriordominant rhythm of 7 to 8 Hz activity that attenuated to eye opening. Betaactivity was seen anterior ly and the remainder of the background contained alphafrequencies. Transient p eriods of drowsiness were characterized by slowing,fragmentation and attenuation of the background. Stage II sleep was notrecorded.There were no focal asymmetr ies , epileptiform discharges or seizures.Hyperventilation was not perfor med. Photic stimulation was performed and didnot illicit any abnormalities. The E KG revealed an approximate heart rate of 70bpm with a regular rhythm.EEG Classifi cation:Abnormal study1. Mild generalized background slowingImpression:Findings ar e a non-specific indicator of mild diffuse or multifocal cerebraldysfunction.Marjorie Clmeent MD ID Date Data Source [id number] 04/15/2018 09:22:00 AM EST [facility] Name Value Range Interpretation Description Data Sup porting Code Source(s) Document(s ) GLUCOSE POC 180 mg/dL 70-110 Above high normal [facility] ID Date Data Source [id number] 04/15/2018 09:03:12 AM EST [facility] Name Value Range Interpretation Description Data Sup porting Code Source(s) Document(s ) Seasonal Clerk [employer] Interface Message Text Ivan Barksdale DO,Physician Advisor/INSTALLER APPRENTICE- P T HERE PAST 2 MIDNIGHTS with ongoingrisks and comorbidities. If medically necessary fo r pt to be here past 2midnights please document and move to inpatient status. I f not dc and continueworkup as outpatient. ID Date Data Source [id number] 04/15/2018 07:33:53 AM EST [facility] Name Value Range Interpretation Description Data Sup porting Code Source(s) Document(s ) Seasonal Clerk [employer] Interface Message Text Patient found resting in bed. Family at bedside. Patient disoriented to place,time, and situation. Oriented to person. Patie nt calm at this time. Patient togo to EEG. Patient and family aware. ID Date Data Source [id number] 04/15/2018 07:31:30 AM EST [facility] Name Value Range Interpretation Description Data Sup porting Code Source(s) Document(s ) Seasonal Clerk [employer] Interface Message Text Problem: SafetyGoal: PT will be free fro m accidental physical injuryOutcome: Progressing ID Date Data Source [id number] 04/15/2018 06:52:16 AM EST [facility] Name Value Range Interpretation Description Data Sup porting Code Source(s) Document(s ) Seasonal Clerk [employer] [facility] Interface Message Text Administered HALDOL 2mg as ordered in EMEKA Fragoso Wasted remaining med and vial.Witness by Frannie Jenkins RN ID Date Data Source [id number] 04/14/2018 09:30:00 PM EST [facility] Name Value Range Interpretation Description Data Sup porting Code Source(s) Document(s ) GLUCOSE POC 148 mg/dL 70-110 Above high normal [facility] RN to be notified ID Date Data Source [id number] 04/14/2018 08:46:07 PM EST [facility] Name Value Range Interpretation Description Data Sup porting Code Source(s) Document(s ) Seasonal Clerk [employer] [facility] Interface Message Text Problem: SafetyGoal: PT will be free fro m accidental physical injuryOutcome: Progressing ID Date Data Source [id number] 04/14/2018 08:35:47 PM EST [facility] Name Value Range Interpretation Description Data Sup porting Code Source(s) Document(s ) Seasonal Clerk [employer] Interface Message Text [facility] CenterPro[facility] ess [facility] Patient lying in bed comfortably in no acute distress. No new complaints, stillhas tremors. Family at bedside.Subjective:Symptoms: Stable. N o shortness of breath, malaise, chest pain or weakness.Diet: Adequate intake. No eben sea or vomiting.Activity level: Returning to normal.Pain: He reports no pain.Objecti ve:General Appearance: Comfortable, well-appearing, in no acute distress and notin pain.Vital signs: (most recent): Blood pressure 131/66, pulse 77, temperature 9 8.9 F(37.2 C), temperature source Oral, resp. rate 18, height 5' 6" (1.676 m),weight 156 lb (70.8 kg), SpO2 98 %. Vital signs are n ormal. No fever.Output: Producing urine and producing stool.Lungs: Normal effort an d normal respiratory rate. Breath sounds clear toauscultation. He is not in resp iratory distress.Heart: Normal rate. Regular rhythm. S1 normal and S2 normal.Abdomen : Abdomen is soft and non-distended. Bowel sounds are normal. There isno abdomina l tenderness.Extremities: Normal range of motion. There is no local swelling.Puls es: Distal pulses are intact.Neurological: Patient is alert and oriented to person, place and time. Abnormalmuscle tone: hand tremors+Skin: Warm. No rash.Labs:CBC:L ab ResultsComponent Value Date WBC 4.5 04/13/2018 RBC 4.27 (L) 04/13/2018 HGB 1 2.9 (L) 04/13/2018 HCT 39.1 (L) 04/13/2018 MCV 91.6 04/13/2018 RDW 12.7 04/13/2018 PLT 279 04/13/2018, CMPLab ResultsComponent Value Date NA 138 04/14/2018 K 3.6 04/14 CL 104 04/14/2018 CO2 23 04/14/2018 BUN 6 (L) 04/14/2018 CREATININE 1.18 (H) 01/2018 GLUCOSE 110 04/14/2018 PROT 6.1 (L) 04/13/2018 LABALBU 3.3 (L) 04/13/2018 CA LCIUM 8.4 (L) 04/14/2018 ALKPHOS 47 04/13/2018 ALT 15 (L) 04/13/2018 AST 26 04/13/2018, TSH:Lab ResultsComponent Value Date TSH 1.465 04/14/2018Ct Brain Wo Con trastResult Date: 04/13/2018IMPRESSION: Unremarkable unenhanced brain CT scan. If clinical symptomspersist, MRI correlation may be obtained as clinically warranted. Mild ischemicsmall vessel disease. Cerebral atherosclerosis.Mri Brain Wo ContrastRes ult Date: 04/14/2018IMPRESSION: No evidence of acute infarction. Chronic microvascular ischemicchanges in the cerebral white matter. Mild parenchymal volume loss.Xr Chest Ap PortableResult Date: 04/13/2018IMPRESSION: Unremarkable limited portable chest radi ograph. No interval change.Us Carotid Doppler BilatResult Date: 04/14/2018IMPRE SSION: Normal examAssessmentAssessment:Condition: In s erious condition. Unchanged.Plan:Ad kylah activity. Consults: neurology and physi mary therapy. Restricted diet.Imaging Plan: EEG. Administer medications as ordered. 1. Altered mental status/encephalopathy vs seizure activity vs possibleparkinsonism . EEG requested as per Dr. Navarro. Neurological evaluation pending.MRI brai n and carotid doppler results unremarkable. Seizure precautions for now.2. Slightly elevated troponin level, probable demand ischemia.3. NANCI to monitor.Plan of care was discussed with the patient. Questions answered. Patient seemsto be agree with the plan. 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 male admitted on 04/13/2018 12:04 PM for Alteredmental status, unspecified altere d mental status type [R41.82]TIA (transient ischemic attack) [G45.9]ROS:General: no fever, no chillsRespiratory: no SOBCardiac: no Chest painsGI: no abdominal painGU: n o dysuriaIntegumentary: no rashesNeuro: no weakness, numbness, tingling, confusion or dizzinessIn review:Past Medical History:Diagnosis Date Hyperlipidemia HypertensionHistory reviewed. No pertine nt surgical history.History reviewed. No pertinent family history.Social HistoryS ocial History Marital status: Single Spouse name: N/A Number of children: N/A Years of education: N/ASocial History Ma in Topics Smoking status: Never Smoker Smokeless tobacco: Never Used Alcohol use No Drug use: No Sexual activity: Not AskedOther Topics C oncern NoneSocial History Narrative NoneHistorySmoking Status Never SmokerSmokeless Tobacco Never UsedHistoryAlcohol Use NoNo Known AllergiesCurrent Facility-Administered MedicationsMedication Dose Route Frequen cy Provider Last Rate Last Dose acetaminophen (TYLENOL) tablet 650 mg 6 50 mg Oral Q4H PRN Javier Reynaga MD atorvastatin (LIPITOR) tablet 10 mg 10 mg Oral Daily Javier Reynaga MD 10mg at 04/14/18 09 dextrose 50 % solution 25 mL 25 mL Intr avenous PRN Javier Reynaga MD finasteride (PROSCAR) tablet 5 mg 5 mg Oral Daily Javier Reynaga MD 5 mgat 04/14/18 09 glimepiride (AMARYL) tablet 2 mg 2 mg O ral QAM AC Javier Reynaga MD 2 mgat 04/14/18 09 glucagon (GLUCAGEN) injection 1 mg 1 mg Intramuscular Once PRN Javier Reynaga MD heparin (porcine) injection 5,000 Units 5,000 Units Subcutaneous 2 times perday Javier Reynaga MD 5,000 Units at 11/0 01/22 180 insulin lispro (HUMALOG) Pen injection 0 -12 Units 0-12 Units Subcutaneous 4xDaily AC & HS Javier Reynaga MD 2 Units at 12/22 linagliptin (TRADJENTA) tablet 5 mg 5 m g Oral Daily Javier Reynaga MD 5 mgat 04/14/18903 lisinopril (PRINIVIL,ZESTRIL) tablet 5 m g 5 mg Oral Daily Javier Reynaga MD5 mg at 04/14/18903 montelukast (SINGULAIR) tablet 10 mg 10 mg Oral Nightly Javier Reynaga MD10 mg at 04/13/182113 sodium chloride 0.9 % flush 3 mL 3 mL I ntravenous PRN Javier Reynaga MD tamsulosin (FLOMAX) 24 hr capsule 0.4 mg 0.4 mg Oral Daily Javier Reynaga MD0.4 mg at 04/14/18903Blood pressure 131/66, p ulse 77, temperature 98.9 F (37.2 C), temperaturesource Oral, resp. rate 18, height 5' 6" (1.676 m), weight 156 lb (70.8 kg),SpO2 98 %.General Examination: General: male in no apparent distressHead / Face: Normocephalic, atraumatic. Symmetr ic.Eyes: Cornea unremarkable. No scleral icterus.Ears: External ears unremarkable to inspection.Nose / Throat: External nose unremarkable.Chest: Clear to auscultatio n bilaterally.Cardiac: Regular rate / rhythm. S1/S2 appreciated.Abdomen: Soft, nontend er, nondistended.Extremities: No cyanosis, clubbing or edema.Neurological Examinati on:Mental Status: Alert and appropriate. No evidence for aphasia or significantcogni tive deficit.Cranial nerves: Visual cespedes full to confrontation. Pupils equally ro und Extraocular movements intact No sensory loss in V1, V2 or V3 trigeminal nerve di stributions. No facial asymmetry / weakness. No dysarthria.Motor: Normal strength in arms and legs proximally and distally.Sensory: Normal to light touch in arms and legs.Reflexes: 2+ and symmetric biceps reflex 2+ and symmetric brachiora dialis reflex. 2+ and symmetric triceps reflex 2+ and symmetric patellar reflex 2+ and symmetric achilles reflexCoordination: No dysmetria on finger-nose testing.Labo ratory studies:Lab ResultsComponent Value Date WBC 4.5 04/13/2018 RBC 4.27 (L) 12/2017 HGB 12.9 (L) 04/13/2018 HCT 39.1 (L) 04/13/2018 PLT 279 04/13/2018 MCV 91.6 1 06/13/2017 MCH 30.2 04/13/2018 MCHC 33.0 04/13/2018 RDW 12.7 04/13/2018 NEUTROABS 3.2 04/13/2018 NEUTOPHILPCT 70.4 04/13/2018 MONOSABS 0.4 04/13/2018 MONOPCT 8.9 12/2017 LYMPHSABS 0.9 04/13/2018 LYMPHOPCT 19.9 04/13/2018 EOSPCT 0.4 04/13/2018 BA SOPCT 0.2 04/13/2018 Lab ResultsComponent Value Date/Time NA 138 04/14/2018 05:17 AM K 3.6 04/14/2018 05:17 AM CL 104 04/14/2018 05:17 AM CO2 23 04/14/2018 05 :17 AM BUN 6 (L) 04/14/2018 05:17 AM PROT 6.1 (L) 04/13/2018 12:34 PM LABALBU 3.3 (L) 04/13/2018 12:34 PM CALCIUM 8.4 (L) 04/14/2018 05:17 AM ALKPHOS 47 8 12:34 PM ALT 15 (L) 04/13/2018 12:34 PM AST 26 04/13/2018 12:34 PMLab ResultsCompone nt Value Date CKTOTAL 150 04/13/2018 No results found for: PHENYTOIN, PHENOBARB, VALPROATE, CBMZ No results foundfor: HGBA1C Lab ResultsComponent Value Date VITAMINB 12 1,373 (H) 04/14/2018 No results found for: FOLATERecent LabsLab [id number] 11 8TRIG 79HDL 35*Radiology results:Ct Brain Wo ContrastResult Date: 04/13/2018IMPRESSION : Unremarkable unenhanced brain CT scan. If clinical symptomspersist, MRI correlatio n may be obtained as clinically warranted. Mild ischemicsmall vessel disease. Cereb ral atherosclerosis.Mri Brain Wo ContrastResult Date: 04/14/2018IMPRESSION : No evidence of acute infarction. Chronic microvascular ischemicchanges in the cer ebral white matter. Mild parenchymal volume loss.Xr Chest Ap PortableResult Date: IMPRESSION: Unremarkable limited portable chest radiograph. No interval c hange.Us Carotid Doppler BilatResult Date: 04/14/2018IMPRESSION: Normal examAssessme nt / Plan:Sahil Cantu is a 72 y.o. year old male admitted for Altered mental sta tus,unspecified altered mental status type [R41.82]TIA (transient ischemic attack) [G45.9]Efren Navarro MD PhDneurology ID Date Data Source [id number] 04/14/2018 07:23:40 PM EST [facility] Name Value Range Interpretation Description Data Sup porting Code Source(s) Document(s ) Seasonal Clerk [employer] [facility] Interface Message Text Pt in bed awake alert, and oriented. No signs of distress. Family at bedside.Will continue to monitor. ID Date Data Source [id number] 04/14/2018 06:03:00 PM EST [facility] Name Value Range Interpretation Description Data Sup porting Code Source(s) Document(s ) GLUCOSE POC 133 mg/dL 70-110 Above high normal [facility] ID Date Data Source [id number] 04/14/2018 03:04:00 PM EST [facility] Name Value Range Interpretation Code Description Data Iman rce(s) Supporting Document(s ) TROPONIN I <0.03 [facility] ID Date Data Source [id number] 04/14/2018 01:59:50 PM [employer] ORIGINAL: Jessica Apr 14, 2018 1:59 PM by Braden Felder MDEXAMINATION:US CAROTID DOPPLER BILATHISTORY:carotid dissectionC OMPARISON:NoneTECHNIQUE:High-resolution duplex imaging including grayscale, colo r-flow and spectral analysis images wasperformed. Measurements of carotid st enosis are performed according to NASCET criteria. Flowvelocities are reported i n cm/s.FINDINGS:Grayscale images demonstrate No significant plaque or evidence of dis sectionFlow velocities and wave forms:Right internal carotid artery: NormalRight com mon carotid artery: NormalICA/CCA flow velocity ratio: NormalVertebral flow: An tegradeLeft internal carotid artery: NormalLeft common carotid artery: Normal ICA/CCA ratio: NormalVertebral flow: AntegradeOther:IMPRESSION:Normal exam Name Value Range Interpretation Code Description Data Iman rce(s) Supporting Document(s ) ID Date Data Source [id number] 04/14/2018 01:45:17 PM EST [facility] Name Value Range Interpretation Description Data Sup porting Code Source(s) Document(s ) Seasonal Clerk [employer] Interface Message Text Problem: Glucose ImbalanceGoal: Clinical indication of glucose balance is achievedOutcome: ProgressingProblem: Derick rological DeficitGoal: Neurological status is stable or improvingOutcome: Progressing ID Date Data Source [id number] 04/14/2018 01:42:30 PM EST [facility] Name Value Range Interpretation Description Data Sup porting Code Source(s) Document(s ) Seasonal Clerk [employer] Message Text Problem: Neurological DeficitGoal: Neuro logical status is stable or improvingOutcome: ProgressingProblem: SafetyGoal: PT will be free from accidental physical injuryOutcome: ProgressingProblem: PainG oal: Patient's pain/discomfort is manageableOutcome: Progressing ID Date Data Source [id number] 04/14/2018 01:06:00 PM EST [facility] Name Value Range Interpretation Description Data Sup porting Code Source(s) Document(s ) GLUCOSE POC 134 mg/dL 70-110 Above high normal [facility] ID Date Data Source [id number] 04/14/2018 10:18:49 AM EST [facility] Name Value Range Interpretation Description Data Sup porting Code Source(s) Document(s ) Seasonal Clerk [employer] Interface Message Text 04/14/18 1015AssessmentInterview Chart Review;Spoke with Patient;Introduced Self, and Explained CM RoleLiving Status With Family;With SpouseHome/Living Setting House, StairsSupport Systems Family Members;Spo use;ChildrenCurrent Cognitive Status alert;orientedBathing (ADL status prior to hospitalization) IndependentDressing (ADL status prior to hospitalization) Indepen dentMobility (ADL status prior to hospitalization) IndependentServices (Pr ior to Hospitalization) NoneDurable Medical Equipment (Prior to Hospitalization) non eAcuity Patient came to the hospital with HTND/C Plan Patient to discuss with MD a t discharge. Patient prior to admissionlives at home with his spouse and was independ ent prior to admission. Patientdenies home care servies or additonal DME at home. Patient denies further needsand states he has family that will transport him when he i s stable. No furtherneeds noted.Transporation on Discharge Family/ FriendReviewed Interdisciplinary Admission Assessment YesMeds to BedsideIs NeighboR x meds to bedside available at this campus? Yes ID Date Data Source [id number] 04/14/2018 10:17:47 AM [employer] ORIGINAL: Jessica Apr 14, 2018 10:17 AM by Ladarius Durbin MDEXAMINATION:MRI BRAIN WO CONTRASTHISTORY:TIA vs CVA.COMPARISON:TECHNIQUE:Multiplanar, multisequential MRI of the brain was per formed without intravenous gadolinium.FINDINGSThere is no mass, int racranial hemorrhage or area of diffusion restriction to suggest acuteinfarction. There is confluent periventricular and multifocal subcortical white matter FLAI Rsignal alteration, likely related to sequela of chronic microvascular ischemic change s.There is no mass effect, midline shift, hydrocephalus or extra-axial collections . Mild prominenceof ventricles and sulci suggest parenchymal volume loss. Flow v oids are preserved within thedominant arterial structures, suggestive of vesse l patency.The petromastoid air cells are clear. There is minimal mucosal thicken ing scattered throughout theethmoid complexes. There is also a small polyp/ retention cyst in the left maxillary antrum. Theorbital contents are unremarkable. T he orbital contents are unremarkable.IMPRESSION:No evidence of a cute infarction.Chronic microvascular ischemic changes in the cerebral white m atter.Mild parenchymal volume loss. Name Value Range Interpretation Code Description Data Iman rce(s) Supporting Document(s ) ID Date Data Source [id number] 04/14/2018 08:48:00 AM [employer] Name Value Range Interpretation Description Data Sup porting Code Source(s) Document(s ) GLUCOSE POC 143 mg/dL 70-110 Above high normal [facility] ID Date Data Source [id number] 04/14/2018 08:32:00 AM [employer] Name Value Range Interpretation Code Description Data Supporting Source(s) Document(s ) LACTATE 1.1 mmol/L 0.5-2.2 [facility] ID Date Data Source [id number] 04/14/2018 08:38:00 AM EST [facility] Name Value Range Interpretation Code Description Data Iman rce(s) Supporting Document(s ) TROPONIN I <0.03 [facility] ID Date Data Source [id number] 04/14/2018 07:59:13 AM EST [facility] Name Value Range Interpretation Description Data Sup porting Code Source(s) Document(s ) Seasonal Clerk [facility] Interface Message Text [id number] Pt alert and oriented x4, makes nee ds known. Pt with continuous visibleslight shaking to right hand and left toes. Spe ech clear. Tongue and rightclavicle area noted to be shaking when assessing tongu e. Tongue midline, smilesymmetrical. Hand spring bender and legs strength equal bilaterall y. Denies numbnessor tingling. ID Date Data Source [id number] 04/14/2018 07:11:00 AM EST [facility] Name Value Range Interpretation Description Data Sup porting Code Source(s) Document(s ) SODIUM 138 136-144 [facility]L [facility] POTASSIUM 3.6 3.5-5.1 [facility] CHLORIDE 104 101-111 [facility] CO2 23 mEq/L 22-32 [facility] BLOOD UREA 6 mg/dL 8-20 Below low normal [facility] NITROGEN [facility] GLUCOSE 110 70-110 [facility] mg/dL [facility] CALCIUM 8.4 8.5-10.1 Below low normal [facility] mg/dL [facility] CREATININE 1.18 0.55-1.0 Above high normal [facility] mg/dL 2 [facility] ANION GAP 11 mEq/L 8-17 [facility] EGFR >=60.0 [facility] EGFR NON >=60.0 [facility]IN[facility] ID Date Data Source [id number] 04/14/2018 07:20:00 AM EST [facility] Name Value Range Interpretation Description Data Sup porting Code Source(s) Document(s ) TRIGLYCERIDES 79 mg/dL <=150 [facility] CHOLESTEROL 118 <=200 [facility] mg/dL [facility] LDL CHOLESTEROL 67 mg/dL 0-160 [facility] CALCULATED [facility] HDL CHOLESTEROL 35 mg/dL >=60 Below low normal [facility] ID Date Data Source [id number] 04/14/2018 07:29:00 AM EST [facility] Name Value Range Interpretation Description Data Sup porting Code Source(s) Document(s ) THYROID 1.465 0.450-5. [facility] STIMULATING uIU/mL 330 [facility] HORMONE ID Date Data Source [id number] 04/14/2018 08:30:00 AM EST [facility] Name Value Range Interpretation Description Data Sup porting Code Source(s) Document(s ) VITAMIN 1373 180-914 Above high normal [facility] B-12 pg/mL ID Date Data Source [id number] 04/13/2018 09:45:31 PM EST [facility] Name Value Range Interpretation Description Data Sup porting Code Source(s) Document(s ) Seasonal Clerk [facility] Interface Message Text [facility]History & PhysicalAdmit date: 04/13/2018 CHIEF COMPLAINT: tremors and shakesHISTORY OF PRESENT ILLNESS: The patient is a 72 y.o. male who presents with symptoms as above . Allinformation is obtained through patient, who is a fair historian.Patien taccompanied by spouse and daughter. No primary care provider on file. Patientpr esents in [facility] for tremors that began this morning, brought in by EMS. Hecomplains of associated generalized weakness and had similar symptoms 3 days agoand was seen at another facility in the city. His blood glucose was 560 at thattime. He was brenda ladonna with insulin and IV fluids. Grandson states that his bloodsugar dropped from 130 to 112 this morning. Pt's blood glucose was [address]. Pt has no com plaints at present but feels weak and debilitated.Tremors persists.Past Medica l History:Diagnosis Date Hyperlipidemia Hypertension DM type 2 [facility] History:noneSocial Hi story: reports that he has never smoked. He has never used smokeless tobacco. Herepo rts that he does not drink alcohol or use drugs.Family History:HTN and diabetes am trina family membersREVIEW OF SYSTEMS:A comprehensive review of systems was nega tive except for: Neurological:positive for tremorsAllergies: Patient has no known allergies.Medications Prior to Admission:Prescriptions Prior to Admissi onMedication Sig Dispense Refill Last Dose atorvastatin (LIPITOR) 10 MG tablet Take 10 mg by mouth daily. 04/13/2018 atUnknown time azelastine (ASTELIN) 0.1 % nasal spray 1 spray by Nasal route 2 (two) timesdaily. Use in each nostril as directed 04/13/2018 at Unknown time finasteride (PROSCAR) 5 MG tablet Take 5 mg by mouth daily. 04/13/2018 atUnknown time glimepiride (AMARYL) 2 MG tablet Take 2 mg by mouth every morning beforebreakfast. 04/13/2018 at Unknown time latanoprost (XALATAN) 0.005 % ophthalmic solution 1 drop nightly. 04/12/2018at Unknown time lisinopril (PRINIVIL,ZESTRIL) 5 MG table t Take 5 mg by mouth daily.04/13/2018 at Unknown time sertraline (ZOLOFT) 50 MG tablet Take 50 mg by mouth daily. 04/13/2018 atUnknown time sitagliptan-metformin (JANUMET) 50-1000 MG per tablet Take 1 tablet by mouth 2(two) times daily with meals. 04/13/2018 at U nknown time tamsulosin (FLOMAX) 0.4 MG 24 hr capsule Take 0.4 mg by mouth daily.04/13/2018 at Unknown time montelukast (SINGULAIR) 10 MG tablet Markus e 10 mg by mouth nightly as needed.Unknown at Unknown timePHYSICAL EXAM:Vitals: Patie nt Vitals for the past 8 hrs: BP Temp Temp src Pulse Resp SpO2 Height Zpjozc72/07/1 8 1836 123/65 98.1 F (36.7 C) Oral 87 20 99 % - -04/13/18 1659 - - - - - - 5' 6" (1.676 m) 156 lb (70.8 kg)04/13/18 1652 146/67 98.5 F (36.9 C) Oral 67 18 99 % - -04/13/18 1559 137 /74 - - 72 20 99 % - -04/13/18 1415 142/69 98.2 F (36.8 C) Oral 78 16 100 % - -General appearan ce: alert, appears stated age and cooperativeHead: Normocephalic, without obvious abnormality, atraumaticEyes: conjunctivae/corneas clear. PERRL, EOM's intact. Fundi benign.Throat: lips, mucosa, and tongue normal; teeth and gums normal Neck: no adenopathy, no carotid bruit, no JVD, supple, symmetrical, tracheamidline and thyroid not enlarged, symmetric, no tenderness/mass/nodulesLungs: clear to a uscultation bilaterallyHeart: regular rate and rhythm, S1, S2 normal, no murmur, cl ick, rub or gallopAbdomen: soft, non-tender; bowel sounds normal; no masses, no orga nomegalyExtremities: extremities normal, atraumatic, no cyanosis or edemaPulses: 2+ and symmetricSkin: Skin color, texture, turgor normal. No rashes or lesionsLymph nodes: Cervical, supraclavicular, and axillary nodes normal.Neurologic: Alert and oriented X 3, normal strength and tone. Slight left facialdroop present. Normal symmetric reflexes. Normal coordination and gaitLABS/IMAGING:CBC:Lab ResultsComponen t Value Date WBC 4.5 04/13/2018 RBC 4.27 (L) 04/13/2018 HGB 12.9 (L) 04/13/2018 HCT 3 9.1 (L) 04/13/2018 MCV 91.6 04/13/2018 RDW 12.7 04/13/2018 PLT 279 04/13/2018, CMPL ab ResultsComponent Value Date NA 136 04/13/2018 K 4.5 04/13/2018 CL 102 04/13 CO2 23 04/13/2018 BUN 5 (L) 04/13/2018 CREATININE 1.31 (H) 04/13/2018 GLUCOSE 1 64 (H) 04/13/2018 PROT 6.1 (L) 04/13/2018 LABALBU 3.3 (L) 04/13/2018 CALCIUM 8.7 1 06/13/2017 ALKPHOS 47 04/13/2018 ALT 15 (L) 04/13/2018 AST 26 04/13/2018, PT/INR:Lab ResultsComponent Value Date PROTIME 11.1 04/13/2018 INR 0.98 04/13/2018, Troponin :Lab ResultsComponent Value Date TROPONINI 0.04 (H) 04/13/2018, U/A:Lab ResultsComp onent Value Date BILIRUBINUR Negative 04/13/2018 BLOODU Negative 04/13/2018 NI TRITE Negative 04/13/2018 LEUKOCYTESUR Negative 04/13/2018 PHUR 6.0 04/13/2018 RBCUA 3 (H) 09/13/2016Chest X-Ray: normalEKG Personally reviewed: normal sinus rhythm , PAC's noted, occasional PVC noted,unifocal.Ct Brain Wo Contrast Resu lt Date: 04/13/2018IMPRESSION: Unremarkable unenhanced brain CT scan. If clinical s ymptomspersist, MRI correlation may be obtained as clinically warranted. Mild i schemicsmall vessel disease. Cerebral atherosclerosis.ASSESSMENT AND PLAN:1. A ltered mental status/encephalopathy vs seizure activity. Possibility of TIAvs C VA needs to be excluded, especially with left facial droop presence -continue on home regimen. MRI brain and carotid doppler. Neuro evaluation. TSHcheck. Seizure precaution s.2. Slightly elevated troponin level, possible demand ischemia.3. NANCI to follo w, BMP check in AMPlan of care was discussed with the patient. Questions answered. Jason triplett seemsto be agree with the plan. Will follow-up patient closely, will discharg e fromthe hospital once he is medically stable. DVT prophylaxis.Signed:Javier holt04/13/20189:28 PM ID Date Data Source [id number] 04/13/2018 08:47:00 PM EST [facility] Name Value Range Interpretation Description Data Sup porting Code Source(s) Document(s ) GLUCOSE POC 159 mg/dL 70-110 Above high normal [facility] to [facility] notified ID Date Data Source [id number] 04/13/2018 07:20:32 PM EST [facility] Name Value Range Interpretation Description Data Sup porting Code Source(s) Document(s ) Seasonal Clerk [facility] Interface Message Text Problem: SafetyGoal: PT will be free fro m accidental physical injuryOutcome: Progressing ID Date Data Source [id number] 04/13/2018 07:12:09 PM EST [facility] Name Value Range Interpretation Description Data Sup porting Code Source(s) Document(s ) Seasonal Clerk [facility] [employer] [facility] Interface Message Text Pt in bed awake, alert, and oriented. No signs of distress. VSS. No complaintsof pain at this time. Bed in the lowest position and wheels are locked. Callbell within reach. Received handoff report from Umm serrano RN. Will continue tomonitor. ID Date Data Source [id number] 04/13/2018 05:32:00 PM EST [facility] Name Value Range Interpretation Description Data Sup porting Code Source(s) Document(s ) GLUCOSE POC 121 mg/dL 70-110 Above high normal [facility] ID Date Data Source [id number] 04/13/2018 01:37:00 PM EST [facility] Name Value Range Interpretation Description Data Sup porting Code Source(s) Document(s ) CLARITY Clear Clear [facility] COLOR Colorless Colorless, [facility] Yellow, Health Straw SPECIFIC 1.001 1.001-1.03 [facility] GRAVITY UA 5 Health GLUCOSE UR 50 mg/dL Negative Abnormal [facility] (applies to Health non-numeric results) PH UA 6.0 5.0-8.0 [facility] BLOOD UA Negative Negative [facility] PROTEIN UR Negative Negative [facility] mg/dL [facility] BILIRUBIN UA Negative Negative [facility] UROBILINOGEN Negative Negative [facility]A mg/dL [facility] KETONE UA Negative Negative [facility] mg/dL [facility] NITRITE UA Negative Negative [facility] LEUKOCYTE Negative Negative [facility] ESTERASE [facility]A [facility] ID Date Data Source [id number] 04/15/2018 08:07:00 AM EST [facility] Name Value Range Interpretation Code Description Data Iman rce(s) Supporting Document(s ) CULTURE No Growth [facility] in 2 days ID Date Data Source [id number] 04/13/2018 01:12:37 PM EST [facility] ORIGINAL: WedApr 13, 2018 1:12 PM by Lionel Dubois MDEXAMINATION:CT BRAIN WO CONTRASTHISTORY:Headache and dizziness.C OMPARISON:None.TECHNIQUE:Non-contrast axial images of the brain were obtained.FINDIN GS:There is no midline shift or mass effect. The ventricles and sulci are within norm al limits givenpatients age. There is no evidence of focal mass lesion, intracran ial hemorrhage, recent infarct orextra-axial collection. There is mild periventricula r white matter low attenuation identifiedbilaterally, representing micr ovascular ischemic disease.The visualized paranasal sinuses and mastoid air cells are well-airated. The calvarium is intact.Calcifications of the cavernous c arotid arteries are noted.IMPRESSION:Unremarkable unenhanced brain CT scan. If clinical symptoms persist, MRI correlation may beobtained as clinically warranted.Mild ischemic small vessel disease.Cerebral atherosclerosis. Name Value Range Interpretation Code Description Data Iman rce(s) Supporting Document(s ) ID Date Data Source [id number] 04/13/2018 12:54:13 PM EST [facility] ORIGINAL: WedApr 13, 2018 12:54 PM by Lionel Dubois MDEXAMINATION:XR CHEST SINGLE VIEW PORTABLEHISTORY:Hypoglycemia.COMPAR CATHRYN:09/13/2016.TECHNIQUE:A single AP view of the chest was obtained, with study limit ed secondary to low lung volumes.FINDINGS:The trachea is midline. The mediastinum and edy are unremarkable. The heart size is indeterminate.The lungs and costophrenic angles are clear. Visualized osseous structures are unremarkable.IMPRESSION:U nremarkable limited portable chest radiograph.No interval change. Name Value Range Interpretation Code Description Data Iman rce(s) Supporting Document(s ) ID Date Data Source [id number] 04/13/2018 01:15:00 PM EST [facility] Name Value Range Interpretation Code Description Data Supporting Source(s) Document(s ) LACTATE 2.6 mmol/L 0.5-2.2 Above high normal [facility] ID Date Data Source [id number] 04/18/2018 02:06:00 PM EST [facility] Name Value Range Interpretation Code Description Data Iman rce(s) Supporting Document(s ) CULTURE No Growth [facility] in 5 days ID Date Data Source [id number] 04/13/2018 01:02:00 PM EST [facility] Name Value Range Interpretation Description Data Sup porting Code Source(s) Document(s ) WBC 4.5 4.3-10.6 [facility] 10^3/ Health L RBC 4.27 4.30-5.8 Below low normal [facility] 10^6/ 0 Health L HEMOGLOBIN 12.9 13.3-17. Below low normal [facility] g/dL 0 [facility] HEMATOCRIT 39.1 % 40.3-50. Below low normal [facility] 3 Health MCV 91.6 fL 81.4-99. [facility] 0 [facility] MCH 30.2 pg 26.8-32. [facility] 9 [facility] MCHC 33.0 31.4-34. [facility] g/dL 9 [facility] RDW 12.7 % 11.6-14. [facility] 9 [facility] PLATELET COUNT 279 132-337 [facility] 10^3/ Health L NEUTROPHILS 3.2 1.5-7.5 [facility] ABSOLUTE COUNT 10^3/ Health L LYMPHOCYTES 0.9 0.7-3.6 [facility] ABSOLUTE COUNT 10^3/ Health L MONOCYTES 0.4 0.2-1.1 [facility] ABSOLUTE COUNT 10^3/ Health L EOSINOPHILS 0.02 0.00-0.5 [facility] ABSOLUTE COUNT 10^3/ 0 Health L BASOPHILS 0.0 0.0-0.1 [facility] ABSOLUTE COUNT 10^3/ Health L NEUTROPHILS 70.4 % 41.7-78. [facility] RELATIVE 9 Health PERCENT LYMPHOCYTES 19.9 % 10.8-45. [facility] RELATIVE 9 Health PERCENT MONOCYTES 8.9 % 3.7-15.0 [facility] RELATIVE [facility] PERCENT EOSINOPHILS 0.4 % 0.0-5.7 [facility] PERCENT BASOPHILS 0.2 % 0.0-1.5 [facility] PERCENT IG RELATIVE 0.2 % 0.0-3.0 [facility] PERCENT Health ANC AUTO DIFF 3168 1,500-8, [facility] Cells/mm 000 Health 3 ID Date Data Source [id number] 04/13/2018 01:11:00 PM EST [facility] Name Value Range Interpretation Description Data Sup porting Code Source(s) Document(s ) PROTIME 11.1 9.4-12.5 [facility] seconds INR 0.98 0.83-1.11 [facility] ID Date Data Source [id number] 04/13/2018 01:11:00 PM EST [facility] Name Value Range Interpretation Description Data Sup porting Code Source(s) Document(s ) APTT 32.4 seconds 25.1-36.5 [facility] ID Date Data Source [id number] 04/13/2018 01:17:00 PM EST [facility] Name Value Range Interpretation Description Data Sup porting Code Source(s) Document(s ) SODIUM 136 136-144 [facility] mEq/L [facility] POTASSIUM 4.5 3.5-5.1 [facility] mEq/L [facility] CHLORIDE 102 101-111 [facility] mEq/L [facility] CO2 23 mEq/L 22-32 [facility] BLOOD UREA 5 mg/dL 8-20 Below low normal [facility] NITROGEN Health GLUCOSE 164 70-110 Above high normal [facility] mg/dL Health CALCIUM 8.7 8.5-10.1 [facility] mg/dL Health CREATININE 1.31 0.55-1.0 Above high normal [facility] mg/dL 2 Health ANION GAP 11 mEq/L 8-17 [facility] EGFR >=60.0 [facility] BENINESE [facility] EGFR NON 54.1 >=60.0 Below low normal [facility] ml/min/1 Health BENINESE .732m2 ID Date Data Source [id number] 04/13/2018 01:17:00 PM EST [facility] Name Value Range Interpretation Code Description Data Iman rce(s) Supporting Document(s ) LIPASE 58 U/L 22-51 Above high normal [facility] ID Date Data Source [id number] 04/13/2018 01:23:00 PM EST [facility] Name Value Range Interpretation Description Data Sup porting Code Source(s) Document(s ) ALBUMIN 3.3 g/dL 3.5-4.8 Below low normal [facility] TOTAL PROTEIN 6.1 g/dL 6.4-8.3 Below low normal [facility] BILIRUBIN 0.4 0.3-1.2 [facility] TOTAL mg/dL Health BILIRUBIN 0.11 0.10-0.5 [facility] DIRECT mg/dL 0 Health BILIRUBIN, 0.29 0-0.7 [facility] INDIRECT mg/dL [facility] ALKALINE 47 U/L 45-117 [facility] PHOSPHATASE Health AST (SGOT) 26 U/L 15-41 [facility] ALT (SGPT) 15 U/L 17-63 Below low normal [facility] ID Date Data Source [id number] 04/13/2018 01:23:00 PM EST [facility] Name Value Range Interpretation Description Data Sup porting Code Source(s) Document(s ) CREATINE 150 U/L 49-397 [facility] KINASE TOTAL ID Date Data Source [id number] 04/13/2018 01:24:00 PM EST [facility] Name Value Range Interpretation Description Data Sup porting Code Source(s) Document(s ) B-TYPE 121 pg/mL <=100 Above high normal [facility] NATRIURETIC [facility] PEPTIDE ID Date Data Source [id number] 04/13/2018 01:28:00 PM EST [facility] Name Value Range Interpretation Description Data Sup porting Code Source(s) Document(s ) TROPONIN I 0.04 ng/mL <0.03 Above high normal [facility] ID Date Data Source [id number] 04/13/2018 12:12:36 PM EST [facility] Name Value Range Interpretation Description Data Sup porting Code Source(s) Document(s ) [facility] Message Text Pt BIBA from home with c/o feeling shaky and generalized weakness. Denies feveror chills at home. Procedure Social History Code Duration Value Status Description Data Source(s ) Smoking Unknown if ever completed Unknown if ever [facility] smoked smoked [facility] Vital Signs ID Date Data Source [id number] 08/04/2019 03:02:00 PM EST [facility] Name Value Range Interpretation Code Description Data Source(s) WEIGHT 68.492 kilos 68.492 kilos [facility] HEIGHT 167.6 centimeters 167.6 centimeters [facility] ID Date Data Source [id number] 07/23/2019 09:23:00 AM EST [facility] Name Value Range Interpretation Code Description Data Source(s) WEIGHT 68.492 kilos 68.492 kilos [facility] HEIGHT 167.6 centimeters 167.6 centimeters [facility] ID Date Data Source [id number] 07/23/2019 05:57:00 AM EST [facility] [id number] [place] Name Value Range Interpretation Code Description Data Source(s) WEIGHT 68.492 kilos 68.492 kilos [facility] HEIGHT 167.6 centimeters 167.6 centimeters [facility] ID Date Data Source [id number] 07/23/2019 05:57:00 AM EST [facility] [id number] [place] Name Value Range Interpretation Code Description Data Source(s) WEIGHT 68.492 kilos 68.492 kilos [facility] HEIGHT 167.6 centimeters 167.6 centimeters [facility] ID Date Data Source [id number] 07/23/2019 05:43:00 AM EST [facility] - [id number] [place] Name Value Range Interpretation Code Description Data Source(s) WEIGHT 68.492 kilos 68.492 kilos [facility] HEIGHT 167.6 centimeters 167.6 centimeters [facility] ID Date Data Source [id number] 07/23/2019 05:42:00 AM EST [facility] - [id number] [place] Name Value Range Interpretation Code Description Data Source(s) WEIGHT 68.492 kilos 68.492 kilos [facility] HEIGHT 167.6 centimeters 167.6 centimeters [facility] ID Date Data Source [id number] 07/23/2019 05:42:00 AM EST [facility] - [id number] [place] Name Value Range Interpretation Code Description Data Source(s) WEIGHT 68.492 kilos 68.492 kilos [facility] HEIGHT 167.6 centimeters 167.6 centimeters [facility] ID Date Data Source [id number] 07/23/2019 05:42:00 AM EST [facility] - [id number] [place] Name Value Range Interpretation Code Description Data Source(s) WEIGHT 68.492 kilos 68.492 kilos [facility] HEIGHT 167.6 centimeters 167.6 centimeters [facility] ID Date Data Source [id number] 07/23/2019 05:42:00 AM EST [facility] - [id number] [place] Name Value Range Interpretation Code Description Data Source(s) WEIGHT 68.492 kilos 68.492 kilos [facility] HEIGHT 167.6 centimeters 167.6 centimeters [facility] ID Date Data Source [id number] 07/23/2019 05:42:00 AM EST [facility] - [id number] [place] Name Value Range Interpretation Code Description Data Source(s) WEIGHT 68.492 kilos 68.492 kilos [facility] HEIGHT 167.6 centimeters 167.6 centimeters [facility] ID Date Data Source [id number] 07/23/2019 05:42:00 AM EST [facility] - [id number] [place] Name Value Range Interpretation Code Description Data Source(s) WEIGHT 68.492 kilos 68.492 kilos [facility] HEIGHT 167.6 centimeters 167.6 centimeters [facility] ID Date Data Source [id number] 07/23/2019 05:42:00 AM EST [facility] - [id number] [place] Name Value Range Interpretation Code Description Data Source(s) WEIGHT 68.492 kilos 68.492 kilos [facility] HEIGHT 167.6 centimeters 167.6 centimeters [facility] ID Date Data Source [id number] 07/23/2019 05:42:00 AM EST [facility] - [id number] [place] Name Value Range Interpretation Code Description Data Source(s) WEIGHT 68.492 kilos 68.492 kilos [facility] HEIGHT 167.6 centimeters 167.6 centimeters [facility] ID Date Data Source [id number] 07/23/2019 05:42:00 AM EST [facility] - [id number] [place] Name Value Range Interpretation Code Description Data Source(s) WEIGHT 68.492 kilos 68.492 kilos [facility] HEIGHT 167.6 centimeters 167.6 centimeters [facility] ID Date Data Source [id number] 07/23/2019 05:42:00 AM EST [facility] - [id number] [place] Name Value Range Interpretation Code Description Data Source(s) WEIGHT 68.492 kilos 68.492 kilos [facility] HEIGHT 167.6 centimeters 167.6 centimeters [facility] ID Date Data Source [id number] 07/23/2019 05:42:00 AM EST [facility] - [id number] [place] Name Value Range Interpretation Code Description Data Source(s) WEIGHT 68.492 kilos 68.492 kilos [facility] HEIGHT 167.6 centimeters 167.6 centimeters [facility] ID Date Data Source [id number] 07/23/2019 05:41:00 AM EST [facility] - [id number] [place] Name Value Range Interpretation Code Description Data Source(s) WEIGHT 68.492 kilos 68.492 kilos [facility] HEIGHT 167.6 centimeters 167.6 centimeters [facility] ID Date Data Source [id number] 07/23/2019 05:35:00 AM EST [facility] - [id number] [place] Name Value Range Interpretation Code Description Data Source(s) WEIGHT 68.492 kilos 68.492 kilos [facility] HEIGHT 167.6 centimeters 167.6 centimeters [facility] ID Date Data Source [id number] 07/23/2019 05:31:00 AM EST [facility] - [id number] [place] Name Value Range Interpretation Code Description Data Source(s) WEIGHT 68.492 kilos 68.492 kilos [facility] HEIGHT 167.6 centimeters 167.6 centimeters [facility] ID Date Data Source [id number] 07/23/2019 05:31:00 AM EST [facility] - [id number] [place] Name Value Range Interpretation Code Description Data Source(s) WEIGHT 68.492 kilos 68.492 kilos [facility] HEIGHT 167.6 centimeters 167.6 centimeters [facility] ID Date Data Source [id number] 07/23/2019 05:30:00 AM EST [facility] - [id number] [place] Name Value Range Interpretation Code Description Data Source(s) WEIGHT 68.492 kilos 68.492 kilos [facility] HEIGHT 167.6 centimeters 167.6 centimeters [facility] ID Date Data Source [id number] 07/23/2019 05:29:00 AM EST [facility] - [id number] [place] Name Value Range Interpretation Code Description Data Source(s) WEIGHT 68.492 kilos 68.492 kilos [facility] HEIGHT 167.6 centimeters 167.6 centimeters [facility] ID Date Data Source [id number] 07/23/2019 05:29:00 AM EST [facility] - [id number] [place] Name Value Range Interpretation Code Description Data Source(s) WEIGHT 68.492 kilos 68.492 kilos [facility] HEIGHT 167.6 centimeters 167.6 centimeters [facility] ID Date Data Source [id number] 07/23/2019 05:33:00 AM EST [facility] Name Value Range Interpretation Code Description Data Source(s) WEIGHT 68.492 kilos 68.492 kilos [facility] HEIGHT 167.6 centimeters 167.6 centimeters [facility] Patient Treatment Plan of Care Planned Activity Planned Date Details Description Data Source (s) Azithromycin 250 MG Oral 04/02/2014 12:00:[facility] Tablet [Zithromax] AM EDT [facility] sitagliptin [address] [facility] [place] Tablet [Januvia] [facility] Glyburide [address] [facility] Tablet [Diabeta] [facility] glimepiride [address] [facility] [place] Tablet [Amaryl] [facility] atorvastatin [address] [facility] [place] Tablet [Lipitor] [facility] Tamsulosin hydrochloride [facility] 0.4 MG Oral Capsule [facility] [Flomax] Metformin hydrochloride [facility] 1000 MG / [facility] [Janumet] Sertraline [address] [facility] Tablet [Zoloft] [facility] Lisinopril 2.[address] [facility] [place] Tablet [Zestril] [facility] Insulin Glargine [address] [facility] UNT/ML Injectable [facility] Solution [Lantus] Finasteride [address] [facility] [place] Tablet [Proscar] [facility] Donepezil hydrochloride [address] [facility] MG Oral Tablet [Aricept] [facility] Divalproex Sodium [address] [facility]ayed [facility] Caps[facility] [Depakote]
[2020-03-12] MEDS ORDERED: LIDOCAINE HCL/PF 2% SDV 5ML VIAL ONE (11:10)
[2020-03-12] MEDS ORDERED: PROPOFOL 20 ML ONE (11:10)
[2020-03-12] MEDS ORDERED: MIDAZOLAM HCL 2 MG/2 ML SINGLE DOSE VIAL ONE (11:11)
[2020-03-12] MEDS ORDERED: ceFAZolin SODIUM 1 GM VIAL IVPB ONE (11:38)
[2020-03-12] MEDS ORDERED: ceFAZolin SODIUM 1 GM VIAL ONE (11:51)
--- NOTE | 2020-03-12 12:21 | HP ---
DATE OF ADMISSION: 03/12/2020 HISTORY: Patient is a 74-year-old male with history of left flank pain colicky in nature, recurrent urinary tract infections, urinary frequency, urgency, persistent microscopic hematuria. Patient is a diabetic and hypertensive. Presently he is on metformin and lisinopril. He denies any allergies or ethanolism. Physical examination revealed left flank pain. There was left CVA tenderness. Urinalysis is positive for blood. An ultrasound of the kidney revealed a stone in the right middle pole of the kidney. Urinalysis persistently reveals microscopic blood. Genitalia are atraumatic. Prostate is 2+, benign, nontender. IMPRESSION: At present is left renal stone, hematuria, left colic. PLAN: Left extracorporeal shock wave lithotripsy. Ciara [id number]
--- NOTE | 2020-03-12 12:35 | OP ---
Operative Note - Note: Operative Date: 03/12/20 Pre-Operative Diagnosis: LEFT RENAL STONE, RENAL COLICK, HEMATURIA Operation: LEFT ESWL Findings: LT. RENAL STONE Post-Operative Diagnosis: Same as Pre-op Surgeon: Terry Willard Anesthesia: General Specimens Removed: NONE Estimated Blood Loss (mls): 0 Instrument used (Debridements only): 0 Drains & Tubes with Location: 0 Drains, Volume Out (mls): 0 Blood Volume Replaced (mls): 0 Fluid Volume Replaced (mls): 0 Operative Report Dictated: Yes
[2020-03-12 12:50] VITALS: BP 123/64; PULSE 64; TEMP 97
--- NOTE | 2020-03-12 13:31 | OP ---
DATE OF OPERATION: 03/12/2020 Patient is a 74-year-old male with left renal colic, history of micturition disorder, and persistent microscopic hematuria. Renal ultrasound revealed multiple gravel in the kidney including a 4-mm stone in the renal pelvis. PREOPERATIVE DIAGNOSIS: Left renal stone. POSTOPERATIVE DIAGNOSIS: Left renal stone. OPERATIVE PROCEDURE: Left extracorporeal shock wave lithotripsy. ANESTHESIA: General. CONDITION: Patient tolerated procedure well. Under above-stated anesthesia, patient was prepped and draped in the usual sterile manner, and under ultrasound and x-ray, the stone in the left kidney was isolated. Approximately 2000 shocks at a power of 18 were performed. There appeared to be change in the size of the stone. Patient tolerated the procedure well. He returned to the recovery room in good condition. Ciara [id number]
== END 2020-03-12 13:35 | disposition home or self-care (01) ==
LOC: JASU-SURG 04:22
PROVIDERS: ATTEND Urology
PROC: 0TF4XZZ Fragmentation in Left Kidney Pelvis, External Approach (ICD-10-PCS; principal; 2020-03-12 11:15)
DX: N20.0 Calculus of kidney (principal); R31.29 Other microscopic hematuria; R39.198 Other difficulties with micturition; I10 Essential (primary) hypertension; E11.9 Type 2 diabetes mellitus without complications
CPT/HCPCS: 82962